=== PATIENT | male | born 1955 | race Caucasian/White ===

== ENCOUNTER 2018-01-26 16:27 | Inpatient (IN) | payer SELFPAY ==
[~2018-01-26 16:27] MED LIST: ISOVUE-370 76%-LOCM 1 ML ONE
[2018-01-26 16:43] LABS: Hemoglobin 13.3 g/dL (14.0-18.0); Mean Corpuscular HGB CONC 34.5 g/dL (32.0-36.0); Mean Corpuscular Hemoglobin 31.8 pg (27.0-31.0); Mean Corpuscular Volume 92.3 fL (78.0-98.0); Mean Platelet Volume 7.8 fL (7.4-10.4); Platelet Count 248 thou/uL (130-400); RBC Distribution Width 12.1 % (11.5-14.5); Red Blood Cell (RBC) Count 4.18 mill/uL (4.70-6.10); White Blood Cell (WBC) Count 34.8 thou/uL (4.8-10.8)
[2018-01-26 16:49] LABS: Prothrombin Time 16.4 SEC (12.0-14.7)
[2018-01-26 16:50] LABS: INR-International Normal Ratio 1.3
[2018-01-26 16:58] LABS: Band 17 % (5-11); Lymphocytes 3 % (21-51); MDiff Complete? YES; Monocytes 5 % (0-10); Neutrophil 73 % (42-75); PLT Morphology Comment Appears Adequate; RBC Morphology Normal; Reactive Lymphocytes 2 % (0-10)
[2018-01-26 17:00] LABS: CKMB 1.2 ng/mL (0-6.6); Troponin I Less than 0.010 ng/mL (< 0.028)
[2018-01-26 17:02] LABS: ALT (SGPT) 19 U/L (8-55); AST (SGOT) 15 U/L (5-34); Albumin 4.3 g/dL (3.4-4.8); Alkaline Phosphatase 64 U/L (40-150); Anion Gap 17 mmol/L (10-20); BUN (Urea Nitrogen) 22 mg/dL (8.4-25.7); Bilirubin, Total 1.4 mg/dL (0.2-1.2); Calc. Creatinine Clearance 0 mL/min (70-130); Carbon Dioxide 20 mmol/L (23-31); Chloride 99 mmol/L (98-107); Estimated GFR-MDRD 78; Globulin 3.3 g/dL (2.4-3.5); Glucose 148 mg/dL (80-115); Protein, Total 7.6 g/dL (5.8-8.1); Sodium 132 mmol/L (136-145)
--- NOTE | 2018-01-26 17:08 | CT ---
NONCONTRAST CT HEAD: 01/26/2018 HISTORY: Stroke alert. Slurred speech. Left arm weakness. FINDINGS: There is decreased attenuation in the periventricular white matter, likely attributable to severe chr onic small vessel ischemic changes. There is an area of encephalomalacia within the right parietal l obe, likely attributable to a remote area of infarction. There is also a small low density area in t he left occipital region, which likely represents an area of infarction of indeterminate age. A more recent infarction in this region cannot be entirely excluded. There are a few punctate low density areas within the left thalamus and left basal ganglia, which are nonspecific, but likely attributable to tiny lacunar infarctions of indeterminate age. There is no evidence of an intraparenchymal or extraaxial hemorrhage. There is cerebral and cerebellar volume loss. The ventricular system is normal in size, shape, and p osition for the degree of sulcal atrophy. There is a small low density area in the right cerebellar hemisphere, likely related to a remote infarction. Minimal mucosal thickening is seen in each maxillary antrum and in a few ethmoidal air cells. The ma stoid air cells are clear. The calvarial structures appear intact. IMPRESSION: 1. Small infarction in the left occipital lobe, of indeterminate age but probably subacute to chroni c. 2. Severe chronic small vessel ischemic changes with an area of encephalomalacia in the right pariet al lobe, probably related to a remote area of infarction. 3. Remote infarction, right cerebellar hemisphere. 4. Lacunar infarctions, left basal ganglia, of indeterminate age. 5. Cerebral and cerebellar volume loss. The above findings were discussed with Dr. Cortes in the emergency department on 01/26/2018 at 1645 hours. CODE CR POS: [facility]
[2018-01-26 19:07] LABS: Bilirubin Negative (Negative); Blood, Urine Negative (Negative); Clarity CLEAR (Clear); Glucose, Urine (Dipstick) Negative (Negative); Leukocyte Negative (Negative); Nitrite Negative (Negative); Protein, Urine (Dipstick) Negative (Neg-Trace); Urobilinogen 0.2 mg/dL (0.2-1.0); pH, Urine 7.5 (5.0-9.0)
--- NOTE | 2018-01-26 19:15 | CT ---
CT ANGIOGRAM BRAIN WITH IV CONTRAST AND 3D RECONSTRUCTIONS: CT ANGIOGRAM NECK WITH IV CONTRAST AND 3D RECONSTRUCTIONS: 01/26/2018 HISTORY: Stroke alert. The patient had slurred speech and left arm weakness. Unknown time when patient was l ast seen normal. FINDINGS: BRAIN: The bilateral middle cerebral and anterior cerebral arteries are patent. There are typ e origins of the bilateral posterior cerebral arteries, which appear patent. There is slight irregul arity involving the proximal left posterior cerebral artery, with findings likely related to a tiny a neurysm involving the proximal left posterior cerebral artery, measuring approximately 2 mm. The distal bilateral vertebral arteries, as well as basilar artery and superior cerebellar arteries, appear patent. No focal stenosis or branch occlusion is appreciated. No additional aneurysm is seen within the limitations of the technique of this examination. As noted on the noncontrast CT scan of the head, there is an infarction in the left occipital lobe, t he exact age of which is indeterminate but is probably more subacute to chronic in origin. NECK: There are prominent atherosclerotic vascular calcifications involving the aortic arch and at t he origins of the great vessels. There is atherosclerotic plaque seen involving the proximal left carvalho bclavian artery, with mild narrowing near the origin, with a moderate focal area of narrowing involvi ng the proximal left subclavian artery, just proximal to the take-off of the left vertebral artery. The remainder of the left subclavian, as well as the visualized left axillary artery, are patent. There is moderate (at least 50%) narrowing involving the origin of the proximal left subclavian arter y, as well as moderate (approximately 50%) narrowing involving the origin of the right common carotid artery. Atherosclerotic calcifications are seen throughout the common carotid arteries bilaterally, with dens e atherosclerotic vascular calcifications, as well as irregular calcifications, involving the origins and proximal internal carotid arteries bilaterally. There is a critical stenosis involving the prox imal right internal carotid artery, with the degree of narrowing greater than 70%, according to NASCE T criteria. There is a long segment of atherosclerotic irregularity involving the origin and proxima l left internal carotid artery, with the length of the area of irregularity measuring 2.2 cm, with se star, 70% or greater stenosis, involving the proximal left internal carotid artery throughout this co urse, including a focal area of critical stenosis without definitive enhancement visualized. The int ernal carotid arteries proximal to the areas of severe atherosclerotic irregularity are otherwise pat ent, including patent internal carotid arteries at each skull base, although there are prominent vasc ular calcifications involving the carotid siphons. The origins of each vertebral artery are not well seen due to calcified plaque at the origin of the r ight vertebral artery and tortuous at the origin of the left vertebral artery, although the vertebral arteries are otherwise patent bilaterally and codominant. There is a heterogeneous and slightly enhancing mass seen at the floor of the mouth on the right and just below the level of the left mandible. This mass measures 4.5 cm craniocaudal x 6.3 cm AP x 3.8 cm transverse. There is slight irregularity involving the body of the mandible, just to the left of midline, likely related to osseous involvement. This is likely related to a neoplastic process. The re is involvement of the musculature involving the floor of the mouth, and well defined fat planes ar e unable to be delineated. The submandibular and bilateral parotid glands have a normal appearance. There is a large fat density mass seen within the soft tissues of the neck, at the level of the upper and mid cervical spine, which measure 5.8 cm x 4.2 cm in maximum axial dimensions. This has charact eristics most suggestive of a large lipoma. No enlarged lymph nodes are seen within the neck by CT size criteria. Multilevel degenerative changes are seen in the spine. The visualized upper lobes demonstrate increased interstitial and patchy parenchymal opacities, worri some for a bilateral infectious process. A typical infectious process or possibly aspiration pneumon itis is a possibility. There are prominent calcifications in the soft tissues of the neck, posteriorly, to the right of midl ine. IMPRESSION: 1. No focal stenosis or branch occlusion is seen involving the elem of Macario or vertebrobasilar s ystem. 2. type origins of the bilateral posterior cerebral arteries. There is suggestion of a tiny s accular aneurysm involving the proximal left posterior cerebral artery, which measures 2 mm. This is best seen on the coronal and sagittal imaging. No additional aneurysm is seen within the limitation s of the technique of this examination. 3. Left occipital lobe infarction, likely related to a subacute to chronic infarction. Severe chron ic small vessel ischemic changes are noted. 4. Severe (greater than 70% according to NASCET criteria) stenosis involving the proximal bilateral internal carotid arteries, with focal areas of critical stenosis involving the proximal internal morales tid arteries bilaterally. Prominent irregular atherosclerotic plaque involves the left internal morales tid artery. 5. Large mass, which appears to emanate from the floor of the mouth, adjacent to and extending infer ior to the left mandible, worrisome for a neoplastic process. There is adjacent irregularity of the mandible, suggesting osseous involvement. 6. Large lipoma in the soft tissues, posterior left neck. 7. Interstitial and parenchymal opacities in the bilateral upper lobes, likely related to bilateral pneumonia. Atypical pneumonia is a possibility. 8. Focal moderate stenosis involving the proximal left subclavian artery, just proximal to the take- off of the left vertebral artery. 9. Atherosclerotic irregularity and moderate narrowing involving the proximal right subclavian arter y, with a moderate area of narrowing also involving the most proximal right common carotid artery, wi th the degree of narrowing approaching 50%. The above findings were discussed with Dr. Cortes in the emergency department on 01/26/2018 at 1702 hours. CODE CR POS: [facility]
[2018-01-26 19:16] LABS: Specific Gravity, Urine 1.052 (1.002-1.036)
--- NOTE | 2018-01-26 20:06 | RAD ---
PORTABLE AP CHEST X-RAY: 01/26/2018 HISTORY: Leukocytosis. Altered mental status. COMPARISON: None available. FINDINGS: There are interstitial and patchy parenchymal opacities seen within the mid lung zones bilaterally wi th more confluent parenchymal opacities in the right mid lung zone. The cardiac silhouette and pulmo nary vasculature are within normal limits. No pleural effusion is seen. Vascular calcification is s een in the thoracic aorta. Calcified granuloma is seen at the left lung base. Degenerative changes are noted in the spine. IMPRESSION: Interstitial and parenchymal opacities within the mid lung zones bilaterally, greater on the right, w orrisome for bilateral pneumonia. Atypical pneumonia is a possibility. POS: [facility]
[2018-01-26] MEDS ORDERED: Aspirin 325 MG TAB ONE (20:25)
[2018-01-26 21:55] VITALS: BMI 21.4
[2018-01-27] MEDS ORDERED: HYDROcodone/Acetaminophen 5/325 mg Tablet PO PRN ×2 (01:19)
[2018-01-27] MEDS ORDERED: Ondansetron ODT 4 MG TAB PO PRN (01:19)
[2018-01-27] MEDS ORDERED: Ondansetron HCl/PF 4 MG/2 ML Vial IVP PRN (01:19)
[2018-01-27] MEDS ORDERED: Acetaminophen 650 MG Suppository PR PRN (01:19)
[2018-01-27] MEDS ORDERED: Atorvastatin Calcium 40 MG TAB PO SCH (01:30)
[2018-01-27 05:49] LABS: Anion Gap 12 mmol/L (10-20); BUN (Urea Nitrogen) 17 mg/dL (8.4-25.7); Calc. Creatinine Clearance 91 mL/min (70-130); Calcium 9.5 mg/dL (7.8-10.44); Carbon Dioxide 25 mmol/L (23-31); Cardiac Risk 4.2 (Less than 4.5); Chloride 100 mmol/L (98-107); Cholesterol 127 mg/dl (< 200 Desired); Estimated GFR-MDRD Greater than 90; Glucose 105 mg/dL (80-115); HDL Cholesterol 30 mg/dL (>60 Neg Risk); LDL Cholesterol, Calculated 75 mg/dL; Magnesium 1.6 mg/dL (1.6-2.6); Potassium 3.5 mmol/L (3.5-5.1); Sodium 133 mmol/L (136-145); Triglycerides 109 mg/dL (Less than 150)
[2018-01-27 05:57] LABS: #Eosinphils 0.1 thou/uL (0.0-0.7); #Lymphocytes 1.9 thou/uL (1.20-3.40); #Monocytes 1.2 thou/uL (0.11-0.59); #Neutrophils 19.5 thou/uL (1.40-6.50); %Basophils 0.2 % (0.0-1.0); %Eosinophils 0.5 % (0.0-10.0); %Lymphocytes 8.3 % (21.0-51.0); %Monocytes 5.2 % (0.0-10.0); %Neutrophils 85.8 % (42.0-75.0); Hemoglobin 12.4 g/dL (14.0-18.0); Mean Corpuscular HGB CONC 32.7 g/dL (32.0-36.0); Mean Corpuscular Hemoglobin 30.5 pg (27.0-31.0); Mean Corpuscular Volume 93.2 fL (78.0-98.0); Mean Platelet Volume 8.1 fL (7.4-10.4); Platelet Count 233 thou/uL (130-400); RBC Distribution Width 12.2 % (11.5-14.5); Red Blood Cell (RBC) Count 4.06 mill/uL (4.70-6.10); White Blood Cell (WBC) Count 23.4 thou/uL (4.8-10.8)
[2018-01-27] MEDS: Famotidine 20 MG TAB PO SCH ×2 (08:15→21:37)
[2018-01-27] MEDS: Aspirin 325 MG TAB PO SCH (08:15)
[2018-01-27] MEDS: Enoxaparin Sodium 40 MG/0.4 ML SYRINGE SC SCH (08:16)
--- NOTE | 2018-01-27 15:17 | CT ---
CT OF THE THORAX WITHOUT IV CONTRAST: INDICATION: Cough. Concern for pneumonia. FINDINGS: There are interstitial and airspace opacities involving both upper lobes as well as portions of the l ingula and right middle lobe suspicious for multifocal pneumonia. This is superimposed on mild to mo derate COPD change. There are prominent vascular calcifications involving the thoracic aorta and cor onary arteries. No pathologically enlarged lymph nodes are evident. There are calcified lymph nodes within the left hilar region and mediastinum. There are calcified granuloma within the spleen. The adrenal glands are unremarkable. There is a layered density within the gallbladder suspicious for e ither small stones or sludge. There is a tiny hypodensity within the left mid kidney likely reflecti ng a small cyst. There is a 1.3 cm adenoma within the left adrenal gland. There is a 1.5 cm adenoma within the right adrenal gland. There is scattered degenerative and osteoarthritic change. No definite acute osseous abnormality is evident. IMPRESSION: 1. Findings of multifocal pneumonia. Recommend radiographic followup to resolution. 2. Mild to moderate chronic obstructive pulmonary disease change. 3. Findings of prior granulomatous disease. 4. Bilateral adrenal adenomas. 5. Layered density within the gallbladder may reflect small stones or layered sludge. 6. Small left renal hypodensity statistically likely reflective of a small cyst. 7. Coronary artery thoracic aorta calcifications. CODE T POS: [facility]
--- NOTE | 2018-01-27 19:59 | CON ---
DATE OF CONSULTATION: 01/27/2018 SUBJECTIVE: Referral request for ENT to assess suspicious left submandibular mass. Patient states t hat he has been aware of it for the last several months and did not notice it until he had a fall and has grown in size over these last several months. He does not complain of there being any pain with it nor does it impede with any kind of swallowing history as a previous smoker, though currently vazquez s not smoke. CT scan was performed previously and showed the mass to be suspicious in nature. There fore, ENT was called in. OBJECTIVE: The patient is well developed. He is well-nourished. He is in no acute distress. His v ital signs have been stable. Left submandibular region does show quite a large mass approximately 4 inches x 4 inches, it is fixed and it is hard and it is nonpainful. The patient is able to swallow w ithout difficulty. Floor of mouth and under tongue is normal in appearance. There does not appear t o be any kind of mass in this region. A flexible scope was performed after patient was sprayed with a combination spray. The entire nasoph aryngeal region was visualized and all was normal in appearance. In addition, both a fine needle asp iration procedure and a core biopsy procedure were done on the mass as well as a culture. The area i n that left submandibular region was cleaned using a Betadine solution thoroughly after which it was anesthetized using 1% lidocaine with epinephrine, approximately 5 mL was used. After being anestheti zed, there was fine needle aspiration was performed using an 18 gauge needle, several regions of the mass was explored and placed in a FNA solution. Immediately following the FNA procedure, a 15 blade was used to dissect a small 1 inch opening into the mass itself immediately after this. Culture swab was obtained and placed in the appropriate container. After this, using a Blakesley forceps, 2 core tissue samples were removed from the incision site and placed in and biopsy container all are to be sent to lab to be assessed. The wound was then closed using #2 surgical jessika. The patient tolera scot the procedure well. ASSESSMENT: Left submandibular mass suspicious for cancer. PLAN: Asked for a stat read on both FNA and core biopsy to determine if this is of a cancerous natur e and if so, surgical intervention will then be needed. ENT to follow up after biopsy results.
--- NOTE | 2018-01-27 21:15 | CON ---
DATE OF CONSULTATION: 01/27/2018 REASON FOR CONSULTATION: Evaluate patient with left arm and leg weakness and bilateral carotid disea se on CT angiogram. HISTORY OF PRESENT ILLNESS: Mr. Szymanski is a 62-year-old disheveled gentleman who was admitted wit h left arm and leg weakness. He has no previous history that he was able to give. He also had some slurred speech at the time of presentation. CT angiogram was performed including brain and neck. Th ere were multiple old-appearing both lacunar and nonlacunar infarcts. The CT angiogram shows bilater al carotid stenosis. The skin also noted a submandibular mass which is invading his mandible on the left. PAST MEDICAL HISTORY: None. PAST SURGICAL HISTORY: None. CURRENT MEDICATIONS: Advil p.r.n. ALLERGIES: None. SOCIAL HISTORY: The patient does smoke cigarettes. PHYSICAL EXAMINATION: VITAL SIGNS: His height is 6 feet, weight 158 pounds. Temperature is 98.0, pulse is 98 and regular, blood pressure 127/66. HEENT: He has a large fixed submandibular mass. ENT has recently biopsied this today and biopsy res ults are pending. This is obviously invasive into his mandible as it is fixed to the mandible. I ca nnot palpate any large neck nodes. He has bilateral carotid bruits. CHEST: Has diminished distant breath sounds bilaterally. HEART: Rhythm is regular. ABDOMEN: Soft and nontender. EXTREMITIES: There is no edema. 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 Biopsies are pending. Currently, he is on aspirin, Lovenox, and a statin. I would recommend continuing this until we can discuss his further treatment regimen with Dr. Jaimes. I am not sure wh at direction this is going to go ahead on their end. If deemed appropriate, we certainly can plan on carotid endarterectomies, right and then left since his right side was symptomatic.
[2018-01-27] MEDS: Atorvastatin Calcium 20 MG TAB PO SCH (21:37)
[2018-01-27] MEDS: LUMIGAN EA EYE SCH (21:38)
--- NOTE | 2018-01-28 00:10 | PRG ---
DATE OF SERVICE: 01/27/2018 SUBJECTIVE: The patient reports he is feeling somewhat better. He is regaining some movement on his left side. He states it is substantially better than it was when he initially presented. The patient reports that the mass under his left jaw occurred after he fell and he thought it was simply a result of some injury. He reports he is completely unaware of having had the mass on the left posterior neck area. Of note, the patient reports he used to be a heavy drinker, but quit about 4-6 months ago and drinks none now. He continues to smoke. OBJECTIVE: VITAL SIGNS: Temperature 98.3, pulse 100, respirations 16, O2 sat 92% on room air, blood pressure is 104/64. GENERAL APPEARANCE: Age appropriate male in no distress. He is pleasant, cooperative. HEENT: Patient is edentulous. There is somewhat appears to be almost calcification at the orifice of the sublingual salivary gland on the left. There is a 5-6 cm mass under the left mandibular area that is firm and nontender. There are several white eruptions at the surface, it looked almost pustular, but are solid. NECK: Otherwise supple and symmetric. He does have a large posterior fairly smooth enlargement in the posterior left neck area, it is nontender. The patient tends to head to the right. HEART: Regular, without significant murmurs. LUNGS: Significantly diminished throughout all lung braun without significant rales noted. There is some mild expiratory wheeze. ABDOMEN: Soft, nontender. EXTREMITIES: Warm and dry. NEUROLOGIC: The patient has a pretty good function now with a good strength on the left side near symmetric to the right. LABORATORY DATA: White count 23.4, hemoglobin 12.4, platelets 233. Sodium 132 , potassium 3.5, chloride 100, CO2 of 25, BUN 17, creatinine 0.83, glucose 105, calcium 95, magnesium 1.6. Cultures thus far are negative. IMPRESSION AND PLAN: 1. The patient presented with some left-sided weakness concerning for possible stroke symptoms. That seems to be improving. The patient likely needs to be on some anticoagulation, but he likely needs a biopsy, so we are going to hold on that for the moment. Neurology has been consulted. 2. Bilateral carotid stenosis. The patient has multiple arterial vessels occluded based on the CT angiogram of his head and neck. These go down to the subclavian. All of this related to his major of smoking habit. It is unclear how aggressive we should be with these. We will consult [facility] for input. 3. Pneumonia. Patient appears to have some bilateral pneumonia. It is unclear if this is chronic and scarring, but the patient does have severe leukocytosis. He is currently covered with Levaquin. May need to broaden that out, but we will simply observe that for now. 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 4. Left submandibular mass. This needs to be biopsied. On the CAT scan, it looks very concerning for neoplasm. Given his history of smoking and drinking, he is certainly at high risk for a neoplastic process there. We will consult ENT for that. 5. Large left posterior neck lipoma. Suspect this is benign. 6. Mild anemia. 7. History of significant degenerative brain disease, likely related to ischemic damage over time. The patient has multiple new diagnoses including multiple new vascular issues, pneumonia, possible stroke and left submandibular mass. We will ask palliative care to see the patient as well. NADINE
[2018-01-28] MEDS: Aspirin 325 MG TAB PO SCH (08:45)
[2018-01-28] MEDS: Famotidine 20 MG TAB PO SCH ×2 (08:45→20:28)
--- NOTE | 2018-01-28 10:14 | PDOC.PN ---
- Subjective Encounter Start Date: 01/28/18 Encounter Start Time: 10:12 Feels well. No complaints. - Objective Resuscitation Status: Resuscitation Status FULL:Full Resuscitation Vital Signs & Weight: Vital Signs (12 hours) Temp Pulse Resp BP Pulse Ox 01/28/18 08:00 98.4 F 91 18 01/28/18 04:00 98.4 F 91 18 104/68 96 01/28/18 00:00 99.1 F 98 18 111/80 100 Weight Weight 158 lb 3.2 oz I&O: 01/27/18 01/28/18 01/29/18 06:59 06:59 06:59 Intake Total 630 630 240 Output Total 325 200 Balance 305 430 240 Result Diagrams: 01/27/18 05:01 01/27/18 05:01 Phys Exam - Physical Examination Constitutional: NAD Left submand mass with bandage. Neck: no nodes Respiratory: no wheezing, no rales, no rhonchi Very diminished. Cardiovascular: RRR, no significant murmur II/ murmur best at pulmonic position Gastrointestinal: soft, non-tender, no distention, positive bowel sounds Musculoskeletal: no edema Dx/Plan (1) Mass of submandibular region Code(s): R22.0 - LOCALIZED SWELLING, MASS AND LUMP, HEAD Status: Acute Comment: Likely neoplastic. Path pending. Discussed with patient. He lives in [place], but has been here for months with his sister and mother. He would like to stay locally for la. (2) Pneumonia Code(s): J18.9 - PNEUMONIA, UNSPECIFIED ORGANISM Status: Acute Comment: Continue Levaquin. Generally asymptomatic. Has signif leukocytosis. Worrisome for metastatic disease, but CT does not specifically reveal that. (3) TIA (transient ischemic attack) Code(s): G45.9 - TRANSIENT CEREBRAL ISCHEMIC ATTACK, UNSPECIFIED Status: Acute Comment: Symptoms resolved. Continue with anticoagulation. (4) Carotid stenosis Code(s): I65.29 - OCCLUSION AND STENOSIS OF UNSPECIFIED CAROTID ARTERY Status : Acute Comment: Appreciate [facility] input. Needs bilateral carotid endarterectomies. Have to discern how that will fit into the overall treatment plan in a patient with multiple active medical problems. (5) Tobacco abuse Code(s): Z72.0 - TOBACCO USE Status: Acute Comment: Nicotine patch. (6) Murmur Code(s): R01.1 - CARDIAC MURMUR, UNSPECIFIED Status: Acute Comment: echo - Plan * Treat the pneumonia. Await biopsy results. Then we decide on what to tackle first. Will consult CM for financial assistance. He has applied for Medicaid and will be eligible for Medicare in March, but is non-resourced now. From [place], but here with family over the summer. Believes he would want to stay in this area for treatment.
[2018-01-28 10:36] LABS: #Eosinphils 0.1 thou/uL (0.0-0.7); #Lymphocytes 1.7 thou/uL (1.20-3.40); #Neutrophils 14.5 thou/uL (1.40-6.50); %Basophils 0.1 % (0.0-1.0); %Eosinophils 0.4 % (0.0-10.0); %Lymphocytes 9.7 % (21.0-51.0); %Monocytes 5.8 % (0.0-10.0); Hemoglobin 13.4 g/dL (14.0-18.0); Mean Corpuscular HGB CONC 34.3 g/dL (32.0-36.0); Mean Corpuscular Volume 93.3 fL (78.0-98.0); Mean Platelet Volume 7.5 fL (7.4-10.4); Platelet Count 243 thou/uL (130-400); RBC Distribution Width 12.1 % (11.5-14.5); Red Blood Cell (RBC) Count 4.19 mill/uL (4.70-6.10); White Blood Cell (WBC) Count 17.2 thou/uL (4.8-10.8)
[2018-01-28 10:47] LABS: Anion Gap 15 mmol/L (10-20); BUN (Urea Nitrogen) 16 mg/dL (8.4-25.7); Calc. Creatinine Clearance 89 mL/min (70-130); Calcium 9.7 mg/dL (7.8-10.44); Carbon Dioxide 23 mmol/L (23-31); Chloride 99 mmol/L (98-107); Estimated GFR-MDRD Greater than 90; Glucose 109 mg/dL (80-115); Sodium 133 mmol/L (136-145)
--- NOTE | 2018-01-28 11:38 | CON ---
DATE OF CONSULTATION: 01/27/2018 REFERRING PROVIDER: José Maldonado M.D. REASON FOR CONSULTATION: Left-sided numbness and weakness. HISTORY OF PRESENT ILLNESS: Mr. Szymanski is a pleasant 62-year-old male, who has been consulted for evaluation of left-sided numbness and weakness. He reports that last night he started having numbness and tingling sensation in his left upper and lower extremities. He also noticed weakness in his left arm and left leg. He also noticed slurred speech. His symptoms were not improving this morning, and thus he decided to present to the [facility]. He was last seen normal by his family member the night before admission. He reports of improvement in his symptoms since being admitted to the hospital. He currently denies any headache, chest pain, palpitation, lightheadedness or dizziness. PAST MEDICAL HISTORY: Significant for hypertension, TIA. PAST SURGICAL HISTORY: None significant. SOCIAL HISTORY: He reports of smoking 2 packs of cigarettes on a daily basis. He also has a history of marijuana use in the past. He denies alcohol use. FAMILY HISTORY: Noncontributory. CURRENT MEDICATIONS: Please review MAR. ALLERGIES: No known drug allergies. REVIEW OF SYSTEMS: As mentioned above in HPI, otherwise negative. PHYSICAL EXAMINATION: VITAL SIGNS: Blood pressure of 104/65, pulse of 100, temperature of 98.3, respirations of 16, O2 sats of 92% on room air. GENERAL: Well-developed, well-nourished male, in no apparent distress. RESPIRATORY: Clear to auscultation bilaterally. CARDIOVASCULAR: Regular rate and rhythm. NEUROLOGIC: Mental status: The patient is awake, alert, oriented x3. Speech and language: Fluent speech. Cranial nerves: Pupils are 3 mm and reactive. Visual braun are intact. External muscles are intact. No nystagmus noted. Face is symmetric. Tongue and uvula are midline. Motor exam showed normal tone and bulk with a 5/5 strength in both upper and lower extremities. Sensory : Sensation is intact and symmetric. Deep tendon reflexes, 2+ reflexes in both upper and lower extremities. Babinski: Plantar responses flexion bilaterally. Coordination intact to [id number] and finger tapping bilaterally. LABORATORY DATA: Reviewed which included CBC, coag panel, CMP, lipid profile and urinalysis, which is significant for WBC of 22.4, hemoglobin 12.4, hematocrit 37.9. PT of 16.4, INR of 1.3, PTT of 32.0, sodium of 123, otherwise unremarkable. IMAGING STUDIES: CT head without contrast was reviewed, which showed no acute intracranial abnormality. There is a small low density area in left occipital lobe suggestive of subacute to chronic infarction. CT angiogram of the head and neck were reviewed, which showed severe stenosis involving the proximal bilateral internal carotid arteries with focal areas of critical stenosis involving the proximal internal carotid arteries bilaterally, prominent irregular atherosclerotic plaque involving the left internal carotid artery. There is also large mass which emanates from the floor of the mouth adjacent to and extending inferior to the left mandible. IMPRESSION: 1. Transient episode of left-sided numbness and weakness, suggestive of transient ischemic attack. 2. Bilateral carotid artery stenosis. 3. Mass in the mandibular area. ASSESSMENT AND PLAN: Mr. Szymanski is a pleasant 62-year-old male with history of hypertension presents with episode of worsening left-sided numbness and weakness with resolution of symptoms in less than 24 hours which would suggest transient ischemic attack. The CT angiogram does show severe stenosis involving bilateral internal carotid arteries for which I would recommend consulting cardiovascular surgery and starting patient on Aspirin 325 mg daily for secondary stroke prevention. The CT angiogram also showed mass in the neck for which ENT needs to be consulted for possible biopsy and further recommendations. I would recommend obtaining MRI brain without contrast, consult PT, OT, and speech therapy. Once the workup is completed, patient may be okay to be discharged to home. No further neurological workup needed from my standpoint. Thank you for the consultation. NADINE
[2018-01-28] MEDS: LUMIGAN EA EYE SCH (20:28)
[2018-01-28] MEDS: Atorvastatin Calcium 20 MG TAB PO SCH (20:28)
[2018-01-29 06:47] LABS: #Eosinphils 0.1 thou/uL (0.0-0.7); #Lymphocytes 1.6 thou/uL (1.20-3.40); #Monocytes 0.8 thou/uL (0.11-0.59); #Neutrophils 10.2 thou/uL (1.40-6.50); %Basophils 0.2 % (0.0-1.0); %Lymphocytes 12.4 % (21.0-51.0); %Monocytes 6.5 % (0.0-10.0); %Neutrophils 79.9 % (42.0-75.0); Hemoglobin 13.7 g/dL (14.0-18.0); Mean Corpuscular HGB CONC 34.2 g/dL (32.0-36.0); Mean Corpuscular Hemoglobin 31.8 pg (27.0-31.0); Mean Platelet Volume 8.6 fL (7.4-10.4); Platelet Count 234 thou/uL (130-400); RBC Distribution Width 12.1 % (11.5-14.5); Red Blood Cell (RBC) Count 4.32 mill/uL (4.70-6.10); White Blood Cell (WBC) Count 12.7 thou/uL (4.8-10.8)
[2018-01-29 07:08] LABS: Anion Gap 14 mmol/L (10-20); BUN (Urea Nitrogen) 15 mg/dL (8.4-25.7); Calc. Creatinine Clearance 94 mL/min (70-130); Calcium 9.6 mg/dL (7.8-10.44); Carbon Dioxide 23 mmol/L (23-31); Chloride 102 mmol/L (98-107); Estimated GFR-MDRD Greater than 90; Glucose 115 mg/dL (80-115); Potassium 4.1 mmol/L (3.5-5.1); Sodium 135 mmol/L (136-145)
--- NOTE | 2018-01-29 08:33 | MRI ---
MRI OF BRAIN PERFORMED WITHOUT CONTRAST ENHANCEMENT: HISTORY: Left arm weakness. COMPARISON: CT examination that was performed 01/26/18. There is fairly pronounced generalized ventricular and sulcal prominence. There is extensive T2 and FLAIR hyperintensity seen within the white matter. On the diffusion weighted sequence in the right p osterior frontoparietal region is a small focus of restricted diffusion compatible with a small acute area of infarct. No mass effect is seen. No extraaxial masses. The mastoid air cells and visualized sinuses appear clear. IMPRESSION: 1. Small focus of acute infarct over the right posterior frontoparietal convexity region. 2. Extensive atrophy and chronic white matter change. POS: HOA
[2018-01-29] MEDS: Aspirin 325 MG TAB PO SCH (08:46)
[2018-01-29] MEDS: Famotidine 20 MG TAB PO SCH ×2 (08:47→20:58)
[2018-01-29] MEDS: Nicotine 21 MG PATCH TD SCH (08:47)
--- NOTE | 2018-01-29 13:46 | EKG ---
Test Reason : Blood Pressure : / mmHG Vent. Rate : 110 BPM Atrial Rate : 110 BPM P-R Int : 138 ms QRS Dur : 086 ms QT Int : 360 ms P-R-T Axes : 062 044 071 degrees QTc Int : 487 ms Sinus tachycardia Otherwise normal ECG Confirmed by TERRI SMITH, KELTON ([id number]), scientific publications editor CRISPIN ASHER ([id number]) on 01/29/2018 1:45:37 PM Referred By: Confirmed By:KELTON MURRAY MD
--- NOTE | 2018-01-29 14:20 | PRG ---
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 All this was discussed wi th the patient. OBJECTIVE: VITAL SIGNS: Stable, afebrile. NECK: Large necrotic mass involving the skin and fixed to the mandible in the left anterior mandibul ar area approximately 8 x 10 cm. There is some subtle lymphadenopathy associated with level 2 of the left side, otherwise, no obvious lymphadenopathy. HEENT: Oral cavity and oropharyngeal exam is still normal. No mucosal lesions are noted. He edentu lous. Nasal cavity is clear anteriorly. Nasopharynx is clear by previous laryngoscopy. ASSESSMENT: This is either a tumor, unknown primary with a large submental cervical lymph node metas tasis or a primary submandibular gland or sublingual gland squamous cell carcinoma. Regardless invol ving the bone involvement that is noted clinically and radiographically, his only best option is thien g to be resection, partial mandibulectomy along with a free flap to cover this area. Will discuss wi th the social media developer options of possibly getting him an appointment at [facility] or another [facility] that is capable of performing this size of a resection and closure, which will require an osteocu taneous free flap. In the meantime, we will stay standby to consult.
--- NOTE | 2018-01-29 15:24 | PDOC.PN ---
- Subjective Encounter Start Date: 01/29/18 Encounter Start Time: 15:23 Feels fine. No complaints. - Objective Resuscitation Status: Resuscitation Status FULL:Full Resuscitation Vital Signs & Weight: Vital Signs (12 hours) Temp Pulse Resp BP Pulse Ox 01/29/18 11:42 99.3 F 102 H 16 136/69 98 01/29/18 08:00 98 F 85 16 01/29/18 07:50 98 F 85 16 116/79 95 01/29/18 04:00 99.5 F 88 18 131/74 99 Weight Weight 158 lb 3.2 oz I&O: 01/28/18 01/29/18 01/30/18 06:59 06:59 06:59 Intake Total 630 1470 890 Output Total 200 400 Balance 430 1070 890 Result Diagrams: 01/29/18 06:40 01/29/18 06:40 Phys Exam - Physical Examination Constitutional: NAD Submental lesion biopsy site healing well. Neck: no nodes, no JVD, supple Respiratory: no wheezing, no rales, no rhonchi, clear to auscultation bilateral Diminished Cardiovascular: RRR, no significant murmur Gastrointestinal: soft, non-tender, no distention, positive bowel sounds Musculoskeletal: no edema Dx/Plan (1) Mass of submandibular region Code(s): R22.0 - LOCALIZED SWELLING, MASS AND LUMP, HEAD Status: Acute Comment: Squamous cell. ENT D/W CM to help get the patient set up with MD [facility]. Onc consult pending, but case discussed. Will need Rad Onc consult as well. (2) Pneumonia Code(s): J18.9 - PNEUMONIA, UNSPECIFIED ORGANISM Status: Acute Comment: Continue Levaquin. Generally asymptomatic. Has signif leukocytosis. Worrisome for metastatic disease, but CT does not specifically reveal that. Could change to oral abx anytime. (3) CVA (cerebral vascular accident) Code(s): I63.9 - CEREBRAL INFARCTION, UNSPECIFIED Status: Acute Comment: MRI did confirm small, new CVA. Still has risk of bigger CVA with the carotid stenosis. (4) TIA (transient ischemic attack) Code(s): G45.9 - TRANSIENT CEREBRAL ISCHEMIC ATTACK, UNSPECIFIED Status: Ruled -out Comment: Symptoms resolved. Continue with anticoagulation. (5) Carotid stenosis Code(s): I65.29 - OCCLUSION AND STENOSIS OF UNSPECIFIED CAROTID ARTERY Status : Acute Comment: Appreciate [facility] input. Needs bilateral carotid endarterectomies. Have to discern how that will fit into the overall treatment plan in a patient with multiple active medical problems. (6) Tobacco abuse Code(s): Z72.0 - TOBACCO USE Status: Acute Comment: Nicotine patch. (7) Murmur Code(s): R01.1 - CARDIAC MURMUR, UNSPECIFIED Status: Acute Comment: Echo with no signficant valvular disease. EF normal. Diastolic dysfunction present. - Plan * .
--- NOTE | 2018-01-29 18:37 | CON ---
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 HISTORY OF PRESENT ILLNESS: Mr. Szymanski is a disheveled 62-year-old gentleman who was admitted for stroke-like symptoms. He had some slurred speech, left arm and leg weakness, so he presented to the emergency room. CT scan of the brain showed old infarcts. He had a CT angiogram of the brain and n teresa. There was significant bilateral carotid stenosis. There was a heterogenic mass at the floor of the mouth on the right just below the level of the left mandible, measured 4.5 x 6.3 x 3.8 cm. ENT was consulted and performed a biopsy, which returned a moderately differentiated squamous cell carcin juice. The patient states this mass has been present for over 6 weeks. He fell several months ago and felt that this was just a swelling from his fall. He denies any dysphagia, odynophagia or weight lo ss. He is a heavy smoker, smoking approximately 2 packs a day for greater than 50 years. We were as ked to see the patient regarding possible treatments of his squamous cell carcinoma. PAST MEDICAL HISTORY: None. PAST SURGICAL HISTORY: None. ALLERGIES: No known drug allergies. HOME MEDICATIONS: None. FAMILY HISTORY: Noncontributory. SOCIAL HISTORY: [place] pack year history of smoking. No illicit drug use. REVIEW OF SYSTEMS: Constitutional: No fever, chills, night sweats, recent weight loss or gain. Eye s: No blurred or double vision. ENT: No pain, hoarseness, sore throat, dysphagia. Cardiovascular: No chest pain, palpitations or syncope. Respiratory: No shortness of breath, dyspnea on exertion or orthopnea. Gastrointestinal: No nausea, vomiting, diarrhea, constipation or abdominal pain. Gen itourinary: No dysuria or hematuria. Musculoskeletal: Positive for joint pain. Skin: No rash or pruritus. Hematologic: No bruising, bleeding, clotting. Neurologic: Positive for left-sided weakn ess. No numbness, tingling or seizure activity. Psychiatric: No anxiety or depression. PHYSICAL EXAMINATION: VITAL SIGNS: Temperature 98.4, pulse is 93, respiratory rate 16, BP is 127/67. He is 98% on room ai r. GENERAL: Disheveled male, in no acute distress. HEENT: Normocephalic, atraumatic. Pupils equal and reactive to light. He has no teeth. He has a p rotruding hard nodular mass on his left mandible. NECK: Supple. CARDIOVASCULAR: Regular rate and rhythm. LUNGS: Clear. ABDOMEN: Soft, nontender. Bowel sounds are positive. EXTREMITIES: No clubbing, cyanosis or edema. SKIN: No rash. HEMATOLOGIC: No petechia or purpura. NEUROLOGICAL: Positive for left upper extremity and lower extremity weakness. PSYCHIATRIC: The patient is alert and oriented and appropriate. PERTINENT LABORATORY AND X-RAYS: Current WBC is 12.7, hemoglobin 13.7, hematocrit 40.2, platelet cou nt is 234,000, 80% neutrophils, 12% lymphocytes. PT 16.4, INR is 1.3, PTT is 42. Sodium is 135, pot assium 4.1, chloride 102, CO2 is 23, BUN is 15, creatinine 0.81, calcium is 9.6, total bilirubin is 1 .4, AST is 15, ALT is 19, alkaline phosphatase is 64. Serum total protein 7.6, albumin 4.3, globulin 3.3. Radiology per HPI. IMPRESSION: 1. 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 2. Recent cerebrovascular accident. 3. Bilateral carotid stenosis. 4. Pneumonia. 5. History of tobacco abuse. DISCUSSION: ENT has seen the patient and has recommended a resection due to bone involvement. I hav e asked Radiation Oncology to see the patient for their opinion. There is some talk of fixing his ca rotid arteries due to his stroke prior to treatment of his squamous cell carcinoma. I will leave joss t to Dr. Hoover. Thank you for the consult. We will follow him remotely.
--- NOTE | 2018-01-29 19:34 | CON ---
DATE OF CONSULTATION: 01/29/2018 REASON FOR CONSULTATION: Mr. 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 HISTORY OF PRESENT ILLNESS: Mr. Szymanski is admitted to the hospital because of stroke-like symptoms. Apparently, on Saturday, he had some left-sided weakness and numbness and could not walk and get in the house. He was therefore brought to the emergency room for evaluation. His symptoms have improved, but CT angiogram showed peripheral vascular disease, particularly with bilateral carotid stenosis. He also had a large left-sided submandibular area mass, which was contiguous with the floor of mouth on his CT scan. MRI subsequently confirmed a stroke. He does report that his leg is stronger, but he still has some left-sided arm weakness. He has ambulated some. Biopsy has been performed of the submandibular area lesion, which confirmed a moderately differentiated squamous cell carcinoma. ENT has seen the patient and recommended consideration of resection, although the resection could not be done here because of the extent of resection needed. Oncology was asked to see the patient and I have been asked to see the patient to discuss his options with radiation. Presently, he denies any difficulty with swallowing. He has no weight loss and denies any shortness of breath or cough. He reports that he is not having any pain in the mouth or neck region. He first noticed this about 6 weeks ago after a fall. He thought it might be related to the fall, but it has not resolved. He voices no other complaints. PAST MEDICAL HISTORY: 1. Hypertension. 2. History of CVA. 3. He denies other medical or surgical problems. MEDICATIONS: Aspirin, Lipitor, Lovenox, Pepcid, Levaquin, Lumigan eyedrops. ALLERGIES: No known medical allergies. SOCIAL HISTORY: He was smoking up to 2 packs per day. He has been trying to quit. He used marijuana in the past, but has not used marijuana for the past six months. He has also not had alcohol for the past six months. Prior to that , he drank a 12 pack per day. He is presently living with his mother and sister. FAMILY HISTORY: His mother is still living in her 80s and was treated by me with radiation therapy for lung cancer. His father at age 72. There is no other family history of malignancy. REVIEW OF SYSTEMS: A 12-system review of systems was otherwise negative. PHYSICAL EXAMINATION: VITAL SIGNS: Height 6 feet, weight 158 pounds, blood pressure is 127/67, pulse is 93, respirations are 16, temperature 98.4, O2 saturation 93%. GENERAL: He is alert and oriented and in no apparent distress. He appears older than his stated age. Karnofsky performance status is 60%-70%. EYES: Pupils are equal, round and reactive to light. On extraocular movements , having difficulty with both eyes moving to the left. ENT: Oral cavity and oropharynx are normal without lesion or erythema. I see no visible mucosal changes in the floor of mouth area. Palate elevates symmetrically. Gingiva is intact. The patient is edentulous. NECK: Without preauricular, submandibular, cervical, supraclavicular adenopathy on the right. In the left neck, in the anterior aspect of the submandibular region, he has at least an 8 cm palpable mass with some skin changes overlying that. I do not feel any preauricular or cervical or supraclavicular adenopathy. No thyromegaly. Larynx midline. LUNGS: Breathing nonlabored. Clear to auscultation and percussion. CARDIOVASCULAR: Heart has regular rate and rhythm with a 2/6 systolic murmur. No lower extremity edema. BACK: No tenderness on fist percussion of the spine. LYMPHATIC: No axillary or inguinal adenopathy. ABDOMEN: Soft, nontender, nondistended without mass or hepatosplenomegaly. Liver percussed to normal size. SKIN: Without rash or purpura. NEUROLOGIC: Cranial nerves II-XII are described above. Motor strength is 5/5 in the right upper and lower extremities in all muscle groups tested. 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 Motor strength is 5/5 in the left lower extremity. Reflexes are more brisk on the right than on the left. Gait was not tested. He does have some trouble sitting up in bed. LABORATORY DATA: Pathology showed a moderately differentiated squamous cell carcinoma. CBC revealed a white blood count of 12,700 with a hemoglobin of 13.7 , hematocrit of 40.2, platelet count of 234,000. Chemistry group showed fairly normal electrolytes. RADIOLOGIC: MRI of the brain earlier today confirmed a right-sided stroke. CT angiogram through the neck and chest showed peripheral vascular disease with bilateral carotid stenosis. He had an 8 x 10 cm submandibular region mass on the left side. There is no definite evidence of adenopathy in the neck. CT of the chest showed interstitial changes consistent with pneumonia. ASSESSMENT: Mr. 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 This is not from the submandibular gland as the submandibular gland was clearly visible on the CT scan and is uninvolved. The mass is contiguous with the floor of mouth, although on exam, the floor of mouth appears okay. There is some mandibular erosion. He also has had a recent stroke with some residual left-sided weakness. There was question of aspiration pneumonia, which is resolving. PLAN: He does need to recover from his stroke before treatment can be entertained for his malignancy. His bilateral carotid stenosis may need to be addressed. In regard to his malignancy, he has been seen by Dr. Jaimes in ENT who recommended consideration of surgical resection. Typically, for a T4 tumor , that would be the treatment of choice. However, the surgery would be quite extensive and would involve mandibular reconstruction as well as flap reconstruction. He would still need postoperative radiation therapy. Unfortunately, that surgery is not offered here in this town. He would need to go to a major center who can perform such a large operation. Complicating this is the fact that he has no insurance. Thus, he will not be able to go to [facility] or most places. It is going to be very difficult to find a place that can accept him for that. He is, however, close to getting Medicare. 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 This may allow us to expand our treatment options. If he is not a candidate for surgical resection, then consideration could be given to chemotherapy and radiation. This, however , would be expected to have a lower long-term control rate. Nevertheless, this may be our only option for treatment. I did briefly discuss with him the logistics of radiation as well as the benefits and risks of treatment. This is discussed only in generalities as more specifics would be given once a treatment plan has been formulated. We will await the decisions in regard to his carotid stenosis and his stroke recovery. Time was taken to answer all of his questions. We will continue to follow him with you and can see him again as an outpatient also. We will have social work get involved as well. Thank you for this interesting consultation. NADINE
[2018-01-29] MEDS: Atorvastatin Calcium 20 MG TAB PO SCH (20:58)
[2018-01-29] MEDS: LUMIGAN EA EYE SCH (21:06)
[2018-01-30 04:22] LABS: #Eosinphils 0.2 thou/uL (0.0-0.7); #Lymphocytes 1.6 thou/uL (1.20-3.40); #Neutrophils 12.1 thou/uL (1.40-6.50); %Basophils 0.2 % (0.0-1.0); %Eosinophils 1.4 % (0.0-10.0); %Lymphocytes 10.9 % (21.0-51.0); %Monocytes 6.6 % (0.0-10.0); %Neutrophils 80.8 % (42.0-75.0); Hemoglobin 13.6 g/dL (14.0-18.0); Mean Corpuscular HGB CONC 34.8 g/dL (32.0-36.0); Mean Corpuscular Hemoglobin 32.1 pg (27.0-31.0); Mean Corpuscular Volume 92.3 fL (78.0-98.0); Mean Platelet Volume 7.7 fL (7.4-10.4); Platelet Count 272 thou/uL (130-400); Red Blood Cell (RBC) Count 4.22 mill/uL (4.70-6.10); White Blood Cell (WBC) Count 14.9 thou/uL (4.8-10.8)
[2018-01-30 05:13] LABS: Anion Gap 14 mmol/L (10-20); BUN (Urea Nitrogen) 10 mg/dL (8.4-25.7); Calc. Creatinine Clearance 98 mL/min (70-130); Carbon Dioxide 24 mmol/L (23-31); Chloride 102 mmol/L (98-107); Estimated GFR-MDRD Greater than 90; Glucose 133 mg/dL (80-115); Potassium 3.4 mmol/L (3.5-5.1); Sodium 137 mmol/L (136-145)
[2018-01-30] MEDS: Acetaminophen 325 MG TAB PO PRN ×3 (06:26→22:01)
[2018-01-30] MEDS: Nicotine 21 MG PATCH TD SCH (09:48)
[2018-01-30] MEDS: Aspirin 325 MG TAB PO SCH (09:48)
[2018-01-30] MEDS: Enoxaparin Sodium 40 MG/0.4 ML SYRINGE SC SCH (09:48)
[2018-01-30] MEDS: Famotidine 20 MG TAB PO SCH ×2 (09:48→21:39)
--- NOTE | 2018-01-30 17:36 | PDOC.PN ---
- Subjective Encounter Start Date: 01/30/18 Encounter Start Time: 17:34 Mr. Garcia was seen today in follow-up of submental cancer, and acute CVA. He does not have any complaints today. He denies headache or dizziness. - Objective Resuscitation Status: Resuscitation Status FULL:Full Resuscitation MAR Reviewed: Yes Vital Signs & Weight: Vital Signs (12 hours) Temp Pulse Resp BP BP Pulse Ox 01/30/18 15:40 98.4 F 92 16 136/74 99 01/30/18 11:38 98.4 F 93 16 136/76 98 01/30/18 09:40 98.3 F 86 16 97 01/30/18 09:10 143/94 H 01/30/18 07:47 98.3 F 86 16 125/72 97 Weight Weight 158 lb 3.2 oz I&O: 01/29/18 01/30/18 01/31/18 06:59 06:59 06:59 Intake Total 1470 2070 260 Output Total 400 150 Balance 1070 1920 260 Result Diagrams: 01/30/18 03:48 01/30/18 03:48 Phys Exam - Physical Examination HEENT: PERRLA Respiratory: no wheezing, no rales, no rhonchi, clear to auscultation bilateral Cardiovascular: RRR, no significant murmur, no rub Gastrointestinal: soft, non-tender, no distention, positive bowel sounds Musculoskeletal: no edema Dx/Plan (1) CVA (cerebral vascular accident) Code(s): I63.9 - CEREBRAL INFARCTION, UNSPECIFIED Status: Acute Comment: MRI did confirm small, new CVA. Still has risk of bigger CVA with the carotid stenosis. (2) Carotid stenosis Code(s): I65.29 - OCCLUSION AND STENOSIS OF UNSPECIFIED CAROTID ARTERY Status : Acute Comment: Appreciate [facility] input. Needs bilateral carotid endarterectomies. Have to discern how that will fit into the overall treatment plan in a patient with multiple active medical problems. (3) Mass of submandibular region Code(s): R22.0 - LOCALIZED SWELLING, MASS AND LUMP, HEAD Status: Acute Comment: Squamous cell. ENT D/W CM to help get the patient set up with MD [facility]. Onc consult pending, but case discussed. Will need Rad Onc consult as well. (4) Pneumonia Code(s): J18.9 - PNEUMONIA, UNSPECIFIED ORGANISM Status: Acute Comment: Continue Levaquin. Generally asymptomatic. Has signif leukocytosis. Worrisome for metastatic disease, but CT does not specifically reveal that. Could change to oral abx anytime. (5) Tobacco abuse Code(s): Z72.0 - TOBACCO USE Status: Chronic Comment: Nicotine patch. - Plan * Chart reviewed, and patient seen. He was admitted for an Acute CVA, and was found to have a submental tumor, which has been determined to be a squamous cell cancer. He also has bilateral carotid artery stenosis. He has been evaluated by ENT, CV- Surgery and radiation Oncology. His uninsured status proves to be an obstacle in forming a treatment plan * Will discuss with CV- Surgery whether to proceed with Carotid endarterectomy * Pneumonia- continue Levaquin * CVA- continue aspirin and statin therapy, and tobacco cessation .
[2018-01-30] MEDS: LUMIGAN EA EYE SCH (21:40)
[2018-01-30] MEDS: Atorvastatin Calcium 20 MG TAB PO SCH (21:40)
[2018-01-31] MEDS: Famotidine 20 MG TAB PO SCH ×2 (09:24→20:29)
[2018-01-31] MEDS: Aspirin 325 MG TAB PO SCH (09:24)
[2018-01-31] MEDS: Enoxaparin Sodium 40 MG/0.4 ML SYRINGE SC SCH (09:24)
[2018-01-31] MEDS: Nicotine 21 MG PATCH TD SCH (09:25)
[2018-01-31] MEDS ORDERED: hydrALAZINE 20 MG/ML VIAL SLOW IVP PRN (09:49)
--- NOTE | 2018-01-31 09:51 | PDOC.PN ---
- Subjective Encounter Start Date: 01/31/18 Encounter Start Time: 09:50 Mr. Garcia was seen today in follow-up of Submental cancer, and CVA. He does not have any complaints this morning. He denies any dizziness or feeling lightheaded. - Objective Resuscitation Status: Resuscitation Status FULL:Full Resuscitation MAR Reviewed: Yes Vital Signs & Weight: Vital Signs (12 hours) Temp Pulse Resp BP Pulse Ox 01/31/18 08:00 99.7 F H 101 H 20 137/81 95 01/31/18 07:10 98.9 F 97 20 01/31/18 03:20 98.9 F 97 20 116/65 92 L 01/31/18 00:00 98.8 F 94 14 121/75 96 Weight Weight 158 lb 3.2 oz I&O: 01/30/18 01/31/18 02/01/18 06:59 06:59 06:59 Intake Total 2070 880 Output Total 150 200 Balance 1920 680 Result Diagrams: 01/30/18 03:48 01/30/18 03:48 Phys Exam - Physical Examination HEENT: PERRLA Respiratory: no wheezing, no rales, no rhonchi, clear to auscultation bilateral Cardiovascular: RRR, no significant murmur, no rub Gastrointestinal: soft, non-tender, no distention, positive bowel sounds Musculoskeletal: no edema Neurological: non-focal, moves all 4 limbs Dx/Plan (1) CVA (cerebral vascular accident) Code(s): I63.9 - CEREBRAL INFARCTION, UNSPECIFIED Status: Acute Comment: MRI did confirm small, new CVA. Still has risk of bigger CVA with the carotid stenosis. (2) Carotid stenosis Code(s): I65.29 - OCCLUSION AND STENOSIS OF UNSPECIFIED CAROTID ARTERY Status : Acute Comment: Appreciate [facility] input. Needs bilateral carotid endarterectomies. Have to discern how that will fit into the overall treatment plan in a patient with multiple active medical problems. (3) Mass of submandibular region Code(s): R22.0 - LOCALIZED SWELLING, MASS AND LUMP, HEAD Status: Acute Comment: Squamous cell. ENT D/W CM to help get the patient set up with MD Andersen. Onc consult pending, but case discussed. Will need Rad Onc consult as well. (4) Pneumonia Code(s): J18.9 - PNEUMONIA, UNSPECIFIED ORGANISM Status: Acute Comment: Continue Levaquin. Generally asymptomatic. Has signif leukocytosis. Worrisome for metastatic disease, but CT does not specifically reveal that. Could change to oral abx anytime. (5) Tobacco abuse Code(s): Z72.0 - TOBACCO USE Status: Chronic Comment: Nicotine patch. - Plan * Acute CVA- continue aspirin and statin. 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 He will need treatment at a large referral Center * Pneumonia- continue Levaquin * Tobacco Abuse- encourage discontinuation of smoking * HTN- blood pressure is labile- but will allow some permissive hypertension, and will not use PRN medication unless the SBP is more than 180. .
[2018-01-31] MEDS: Acetaminophen 325 MG TAB PO PRN (13:30)
[2018-01-31] MEDS: LUMIGAN EA EYE SCH (20:29)
[2018-01-31] MEDS: Atorvastatin Calcium 20 MG TAB PO SCH (20:31)
[2018-02-01] MEDS: Nicotine 21 MG PATCH TD SCH (07:52)
[2018-02-01] MEDS: Acetaminophen 325 MG TAB PO PRN ×2 (07:52→20:31)
[2018-02-01] MEDS: Enoxaparin Sodium 40 MG/0.4 ML SYRINGE SC SCH (07:57)
[2018-02-01] MEDS: Aspirin 325 MG TAB PO SCH (07:57)
[2018-02-01] MEDS: Famotidine 20 MG TAB PO SCH ×2 (07:57→20:32)
--- NOTE | 2018-02-01 12:35 | PDOC.PN ---
- Subjective Encounter Start Date: 02/01/18 Encounter Start Time: 07:40 Pt seen for followup re: carotid stenosis. Feels better. Denies nausea, vomiting, diarrhea or abdo pain. L weakness improving. - Objective Resuscitation Status: Resuscitation Status FULL:Full Resuscitation MAR Reviewed: Yes Vital Signs & Weight: Vital Signs (12 hours) Temp Pulse Pulse Resp BP BP Pulse Ox 02/01/18 11:16 98.7 F 101 H 16 99/67 100 02/01/18 09:19 117 H 192/93 H 02/01/18 08:00 98.8 F 98 16 02/01/18 07:38 98.8 F 98 16 128/76 98 02/01/18 03:30 98.6 F 100 12 144/74 H 94 L Weight Weight 158 lb 3.2 oz I&O: 01/31/18 02/01/18 02/02/18 06:59 06:59 06:59 Intake Total 880 1260 240 Output Total 200 750 Balance 680 510 240 Result Diagrams: 01/30/18 03:48 01/30/18 03:48 EKG Reviewed by me: Yes (Tele: NSR) Phys Exam - Physical Examination Constitutional: NAD HEENT: moist MMs, sclera anicteric, oral pharynx no lesions, 2+ tonsils Neck: no nodes, no JVD, supple, full ROM Respiratory: no wheezing, no rales, no rhonchi, clear to auscultation bilateral Cardiovascular: RRR, no rub S1, S2 Gastrointestinal: soft, non-tender, no distention, positive bowel sounds Neurological: moves all 4 limbs Psychiatric: normal affect, A&O x 3 Dx/Plan (1) Carotid stenosis Code(s): I65.29 - OCCLUSION AND STENOSIS OF UNSPECIFIED CAROTID ARTERY Status : Acute Comment: For R CEA on Saturday. (2) CVA (cerebral vascular accident) Code(s): I63.9 - CEREBRAL INFARCTION, UNSPECIFIED Status: Acute Comment: continue aspirin and statin (3) Mass of submandibular region Code(s): R22.0 - LOCALIZED SWELLING, MASS AND LUMP, HEAD Status: Acute Comment: Likely for treatment in March (4) Pneumonia Code(s): J18.9 - PNEUMONIA, UNSPECIFIED ORGANISM Status: Acute Comment: Continue Levaquin. (5) Tobacco abuse Code(s): Z72.0 - TOBACCO USE Status: Chronic Comment: continuie nicotine patch. - Plan * . Review of Systems - Review of Systems Constitutional: negative: fever, chills, sweats, weakness, malaise Respiratory: negative: Cough, Shortness of Breath, SOB with Excertion, Pleuritic Pain, Wheezing Cardiovascular: negative: chest pain, palpitations, orthopnea, paroxysmal nocturnal dyspnea, edema, light headedness Gastrointestinal: negative: Nausea, Vomiting, Abdominal Pain, Diarrhea, Constipation, Melena, Hematochezia Genitourinary: negative: Dysuria, Frequency, Incontinence, Hematuria, Retention Skin: negative: Rash, Lesions, Isaiah, Bruising - Medications/Allergies Allergies/Adverse Reactions: Allergies Allergy/AdvReac Type Severity Reaction Status Date / Time No Known Allergies Allergy Verified 01/26/18 23:40 Medications: Current Medications Acetaminophen (Tylenol) 650 mg PO Q4H PRN PRN Reason: Headache/Fever or Pain Last Admin: 02/01/18 07:52 Dose: 650 mg Acetaminophen (Tylenol) 650 mg [place] Q4H PRN PRN Reason: Headache/Fever or Pain Hydrocodone Bitart/Acetaminophen ([place] 5/325) 1 tab PO Q4H PRN PRN Reason: Moderate Pain (4-6) Hydrocodone Bitart/Acetaminophen ([place] 5/325) 2 tab PO Q4H PRN PRN Reason: Severe Pain (7-10) Aspirin (Aspirin) 325 mg PO DAILY [facility] Last Admin: 02/01/18 07:57 Dose: 325 mg Atorvastatin Calcium (Lipitor) 20 mg PO HS [facility] Last Admin: 01/31/18 20:31 Dose: 20 mg Cefazolin Sodium (Ancef) 2 gm SLOW IVP ONCALL-OR [facility] Stop: 02/03/18 23:59 Enoxaparin Sodium (Lovenox) 40 mg SC 0900 [facility] Stop: 02/02/18 22:00 Last Admin: 02/01/18 07:57 Dose: 40 mg Famotidine (Pepcid) 20 mg PO BID [facility] Last Admin: 02/01/18 07:57 Dose: 20 mg Hydralazine HCl (Apresoline) 10 mg SLOW IVP Q4H PRN PRN Reason: Systolic BP > 180 Levofloxacin (Levaquin) 750 mg PO 0600 [facility] Last Admin: 02/01/18 05:14 Dose: 750 mg Nicotine (Nicoderm Patch) 21 mg TD DAILY [facility] Last Admin: 02/01/18 07:52 Dose: 21 mg Ondansetron HCl (Zofran Odt) 4 mg PO Q6H PRN PRN Reason: Nausea/Vomiting Ondansetron HCl (Zofran) 4 mg IVP Q6H PRN PRN Reason: Nausea/Vomiting Lum[place] 1 Drop 0 each EA EYE HS [facility] Last Admin: 01/31/18 20:29 Dose: 1 each Sodium Chloride (Flush - Normal Saline) 10 ml IVF Q12HR [facility] Last Admin: 02/01/18 07:57 Dose: 10 ml Sodium Chloride (Flush - Normal Saline) 10 ml IVF PRN PRN PRN Reason: Saline Flush
[2018-02-01] MEDS: Atorvastatin Calcium 20 MG TAB PO SCH (20:32)
[2018-02-01] MEDS: LUMIGAN EA EYE SCH (20:33)
[2018-02-02] MEDS: Enoxaparin Sodium 40 MG/0.4 ML SYRINGE SC SCH (08:13)
[2018-02-02] MEDS: Aspirin 325 MG TAB PO SCH (08:13)
[2018-02-02] MEDS: Famotidine 20 MG TAB PO SCH ×2 (08:13→20:44)
[2018-02-02] MEDS: Nicotine 21 MG PATCH TD SCH (08:13)
[2018-02-02] MEDS: Acetaminophen 325 MG TAB PO PRN ×3 (08:13→23:35)
--- NOTE | 2018-02-02 12:39 | PDOC.PN ---
- Subjective Encounter Start Date: 02/02/18 Encounter Start Time: 07:40 Pt seen for followup re: carotid stenosis. Denies any complaints. - Objective Resuscitation Status: Resuscitation Status FULL:Full Resuscitation Vital Signs & Weight: Vital Signs (12 hours) Temp Pulse Resp BP Pulse Ox 02/02/18 11:20 98.3 F 90 16 152/80 H 97 02/02/18 08:00 98.3 F 98 16 02/02/18 07:25 98.3 F 98 16 142/71 H 98 02/02/18 04:00 98.1 F 91 16 151/82 H 96 Weight Weight 158 lb 3.2 oz I&O: 02/01/18 02/02/18 02/03/18 06:59 06:59 06:59 Intake Total 1260 1790 360 Output Total 750 375 Balance 510 1415 360 Result Diagrams: 01/30/18 03:48 01/30/18 03:48 Phys Exam - Physical Examination Constitutional: NAD HEENT: PERRLA, moist MMs, sclera anicteric, oral pharynx no lesions Neck: no nodes, no JVD, supple, full ROM Respiratory: no wheezing, no rales, no rhonchi, clear to auscultation bilateral Cardiovascular: RRR, no rub S1, S2 Gastrointestinal: soft, non-tender, no distention, positive bowel sounds Neurological: moves all 4 limbs Psychiatric: normal affect Dx/Plan (1) Carotid stenosis Code(s): I65.29 - OCCLUSION AND STENOSIS OF UNSPECIFIED CAROTID ARTERY Status : Acute Comment: pt to have right carotid endarterectomy tomorrow (2) CVA (cerebral vascular accident) Code(s): I63.9 - CEREBRAL INFARCTION, UNSPECIFIED Status: Acute Comment: on aspirin and statin (3) Mass of submandibular region Code(s): R22.0 - LOCALIZED SWELLING, MASS AND LUMP, HEAD Status: Acute Comment: Likely for treatment in March (4) Pneumonia Code(s): J18.9 - PNEUMONIA, UNSPECIFIED ORGANISM Status: Acute Comment: on Levaquin. (5) Tobacco abuse Code(s): Z72.0 - TOBACCO USE Status: Chronic Comment: on nicotine patch. - Plan * . Review of Systems - Review of Systems Constitutional: negative: fever, chills, sweats, weakness, malaise Respiratory: negative: Cough, Shortness of Breath, SOB with Excertion, Pleuritic Pain, Wheezing Cardiovascular: negative: chest pain, palpitations, orthopnea, paroxysmal nocturnal dyspnea, edema, light headedness Gastrointestinal: negative: Nausea, Vomiting, Abdominal Pain, Diarrhea, Constipation, Melena, Hematochezia Genitourinary: negative: Dysuria, Frequency, Incontinence, Hematuria, Retention - Medications/Allergies Allergies/Adverse Reactions: Allergies Allergy/AdvReac Type Severity Reaction Status Date / Time No Known Allergies Allergy Verified 01/26/18 23:40 Medications: Current Medications Acetaminophen (Tylenol) 650 mg PO Q4H PRN PRN Reason: Headache/Fever or Pain Last Admin: 02/02/18 08:13 Dose: 650 mg Acetaminophen (Tylenol) 650 mg [place] Q4H PRN PRN Reason: Headache/Fever or Pain Hydrocodone Bitart/Acetaminophen ([place] 5/325) 1 tab PO Q4H PRN PRN Reason: Moderate Pain (4-6) Hydrocodone Bitart/Acetaminophen ([place] 5/325) 2 tab PO Q4H PRN PRN Reason: Severe Pain (7-10) Aspirin (Aspirin) 325 mg PO DAILY [facility] Last Admin: 02/02/18 08:13 Dose: 325 mg Atorvastatin Calcium (Lipitor) 20 mg PO HS [facility] Last Admin: 02/01/18 20:32 Dose: 20 mg Cefazolin Sodium (Ancef) 2 gm SLOW IVP ONCALL-OR [facility] Stop: 02/03/18 23:59 Enoxaparin Sodium (Lovenox) 40 mg SC 0900 [facility] Stop: 02/02/18 22:00 Last Admin: 02/02/18 08:13 Dose: 40 mg Famotidine (Pepcid) 20 mg PO BID [facility] Last Admin: 02/02/18 08:13 Dose: 20 mg Hydralazine HCl (Apresoline) 10 mg SLOW IVP Q4H PRN PRN Reason: Systolic BP > 180 Levofloxacin (Levaquin) 750 mg PO 0600 [facility] Last Admin: 02/02/18 05:51 Dose: 750 mg Nicotine (Nicoderm Patch) 21 mg TD DAILY [facility] Last Admin: 02/02/18 08:13 Dose: 21 mg Ondansetron HCl (Zofran Odt) 4 mg PO Q6H PRN PRN Reason: Nausea/Vomiting Ondansetron HCl (Zofran) 4 mg IVP Q6H PRN PRN Reason: Nausea/Vomiting Lumigan 1 Drop 0 each EA EYE HS [facility] Last Admin: 02/01/18 20:33 Dose: 1 each Sodium Chloride (Flush - Normal Saline) 10 ml IVF Q12HR [facility] Last Admin: 02/02/18 08:16 Dose: 10 ml Sodium Chloride (Flush - Normal Saline) 10 ml IVF PRN PRN PRN Reason: Saline Flush
[2018-02-02] MEDS: Atorvastatin Calcium 20 MG TAB PO SCH (20:44)
[2018-02-02] MEDS: LUMIGAN EA EYE SCH (20:45)
[2018-02-03] MEDS ORDERED: CEFAZOLIN/Water 2 GM/20 ML SYRINGE SLOW IVP SCH (07:00)
[2018-02-03] MEDS ORDERED: Heparin 5,000 UNITS/ML VIAL ONE (07:21)
[2018-02-03] MEDS ORDERED: Protamine Sulfate 50 MG/5 ML VIAL ONE (07:21)
[2018-02-03] MEDS ORDERED: Midazolam HCl 2 mg/2 ml Vial ONE (07:49)
[2018-02-03] MEDS ORDERED: CEFAZOLIN/Water 2 GM/20 ML SYRINGE ONE (07:59)
[2018-02-03] MEDS: Famotidine 20 MG TAB PO SCH ×2 (08:00→20:30)
[2018-02-03] MEDS: Nicotine 21 MG PATCH TD SCH (08:00)
[2018-02-03] MEDS: Aspirin 325 MG TAB PO SCH (08:00)
[2018-02-03] MEDS ORDERED: Fentanyl 250 MCG/5 ML VIAL ONE (08:02)
--- NOTE | 2018-02-03 09:47 | OP ---
DATE OF PROCEDURE: 02/03/2018 PREOPERATIVE DIAGNOSIS: Symptomatic right carotid stenosis. POSTOPERATIVE DIAGNOSIS: Symptomatic right carotid stenosis. PROCEDURE: Right carotid endarterectomy with patch angioplasty. SURGEON: Henri Butler M.D. ANESTHESIA: General endotracheal - Dr. Alec Snider. ESTIMATED BLOOD LOSS: Less than 50. SPECIMEN: Right IJ chain lymph node. PROCEDURE IN DETAIL: After consent was obtained, the patient was brought to operating room and place d in supine position on the operating room table. Appropriate anesthetic monitor was placed and gene ral endotracheal anesthesia induced. The right neck was prepped and draped in usual sterile fashion. Skin incision was made on the anterior border of sternocleidomastoid. Sternocleidomastoid was mobi lized. Carotid sheath was entered. Common internal and external carotid arteries were carefully dis sected free from surrounding tissues. Vagus and hypoglossal nerves were noted and protected througho ut the procedure. The patient was systemically heparinized. After 3 minutes, internal, common, and external carotid arteries were serially clamped. Incision was made on the common carotid artery exte nded through the bulb onto the internal carotid artery distal to plaque. A 10-[place] shunt wa s placed and antegrade flow reestablished. Endarterectomy was begun on the common carotid artery ext ended through the bulb on the internal carotid artery. The endpoint had to be transected sharply. T he distal end point was tacked down with 7-0 Prolene suture. An eversion endarterectomy was performe d of the external carotid artery. Medial fibers were debrided. Artery was flushed with heparinized saline. Bovine pericardial patch was sewn in place with running 6-0 Prolene suture. Prior to comple tion of the patch suture line, the shunt was clamped and removed. Arteries were backbled and flushed with heparinized saline. Patch suture line was completed. Antegrade flow was reestablished up the external carotid artery for 10 seconds followed by the internal carotid artery. A 50 mg of protamine was given. Hemostasis was ensured. Wounds were irrigated, closed in layers and Dermabond applied t o the skin. The patient was awakened and neurologically unchanged at completion of procedure, the pa tiejatin was transferred to the recovery room in stable condition.
[2018-02-03] MEDS ORDERED: Phenylephrine 10 MG/NS 250 ML 250 ML IVPB PRN (09:59)
[2018-02-03] MEDS ORDERED: PROPOFOL 200 MG/20 ML VIAL ONE (10:14)
[2018-02-03] MEDS ORDERED: Vecuronium 10 MG VIAL ONE (10:14)
[2018-02-03] MEDS ORDERED: ePHEDrine/0.9% NaCl/PF SYRINGE 50 mg/10 ml ONE (10:14)
[2018-02-03] MEDS ORDERED: Lidocaine 1% PF 5 ML VIAL ONE (10:14)
[2018-02-03] MEDS ORDERED: Glycopyrrolate 0.2 MG/ML 5 ML SYRINGE ONE (10:14)
[2018-02-03] MEDS ORDERED: Heparin 10,000 UNITS/ 10 ML VIAL ONE (10:14)
[2018-02-03] MEDS ORDERED: PHENYLEPHRINE-NS 100 MCG/ML 10 ML SYRINGE ONE (10:14)
[2018-02-03] MEDS ORDERED: Ondansetron HCl/PF 4 MG/2 ML Vial ONE (10:14)
[2018-02-03] MEDS ORDERED: Succinylcholine Chloride 20 MG/ML 10 ml SYRINGE FS ONE (10:14)
[2018-02-03] MEDS ORDERED: Phenylephrine 10 MG/NS 250 ML 250 ML IVPB SCH (10:15)
[2018-02-03] MEDS ORDERED: HYDROcodone/Acetaminophen 5/325 mg Tablet PO PRN (11:10)
[2018-02-03] MEDS ORDERED: Nitroglycerin 50 MG/250 ML BOT 250 ML IVPB PRN (11:10)
[2018-02-03] MEDS ORDERED: Ondansetron HCl/PF 4 MG/2 ML Vial IVP PRN (11:10)
[2018-02-03] MEDS ORDERED: Promethazine HCl 25 MG/ML VIAL IM PRN (11:10)
[2018-02-03] MEDS ORDERED: Fentanyl 100 MCG/2 ML VIAL SLOW IVP PRN (11:10)
[2018-02-03] MEDS: Sodium Chloride 0.9% 1,000 ML IV SCH ×2 (12:09→20:51)
[2018-02-03] MEDS: Acetaminophen 325 MG TAB PO PRN ×2 (13:11→19:26)
[2018-02-03] MEDS: CEFAZOLIN/Water 2 GM/20 ML SYRINGE SLOW IVP SCH (15:39)
--- NOTE | 2018-02-03 17:47 | PDOC.PN ---
- Subjective Encounter Start Date: 02/03/18 Encounter Start Time: 17:45 Pt seen for followup re: carotid stenosis. Denies chest pain, shortness of breath, fevers or chills. - Objective Resuscitation Status: Resuscitation Status FULL:Full Resuscitation MAR Reviewed: Yes Vital Signs & Weight: Vital Signs (12 hours) Temp Pulse Resp Pulse Ox 02/03/18 15:00 98.1 F 02/03/18 13:11 69 12 99 02/03/18 11:45 97.7 F 78 16 99 02/03/18 11:00 97.7 F 02/03/18 07:10 98.8 F 98 18 99 Weight Weight 158 lb 3.2 oz Most Recent Monitor Data Heart Rate from ECG 74 NIBP 108/60 NIBP BP-Mean 80 Respiration from ECG 21 SpO2 100 I&O: 02/02/18 02/03/18 02/04/18 06:59 06:59 06:59 Intake Total 1790 1810 2060 Output Total 375 625 Balance 1415 1185 2060 Result Diagrams: 01/30/18 03:48 01/30/18 03:48 EKG Reviewed by me: Yes (Tele: NSR) Phys Exam - Physical Examination Constitutional: NAD HEENT: moist MMs, sclera anicteric, oral pharynx no lesions, 2+ tonsils Neck: no nodes, no JVD, supple, full ROM surgical site clean (s/p R CEA) Respiratory: no wheezing, no rales, no rhonchi, clear to auscultation bilateral Cardiovascular: RRR, no rub S1, S2 Gastrointestinal: soft, non-tender, no distention, positive bowel sounds Neurological: moves all 4 limbs Psychiatric: normal affect Dx/Plan (1) Carotid stenosis Code(s): I65.29 - OCCLUSION AND STENOSIS OF UNSPECIFIED CAROTID ARTERY Status : Acute Comment: s/p R carotid endarterectomy, uneventful (2) CVA (cerebral vascular accident) Code(s): I63.9 - CEREBRAL INFARCTION, UNSPECIFIED Status: Acute Comment: will continue aspirin and statin (3) Mass of submandibular region Code(s): R22.0 - LOCALIZED SWELLING, MASS AND LUMP, HEAD Status: Acute Comment: Likely for treatment in March (4) Pneumonia Code(s): J18.9 - PNEUMONIA, UNSPECIFIED ORGANISM Status: Acute Comment: will continue levofloxacin (5) Tobacco abuse Code(s): Z72.0 - TOBACCO USE Status: Chronic Comment: will continue nicotine patch. - Plan * . Review of Systems - Review of Systems Constitutional: negative: fever, chills, sweats, weakness, malaise Respiratory: negative: Cough, Shortness of Breath, SOB with Excertion, Pleuritic Pain, Wheezing Cardiovascular: negative: chest pain, palpitations, orthopnea, paroxysmal nocturnal dyspnea, edema, light headedness Gastrointestinal: negative: Nausea, Vomiting, Abdominal Pain, Diarrhea, Constipation, Melena, Hematochezia Genitourinary: negative: Dysuria, Frequency, Incontinence, Hematuria, Retention Skin: negative: Rash, Lesions, Isaiah, Bruising - Medications/Allergies Allergies/Adverse Reactions: Allergies Allergy/AdvReac Type Severity Reaction Status Date / Time No Known Allergies Allergy Verified 01/26/18 23:40 Medications: Current Medications Acetaminophen (Tylenol) 650 mg [place] Q4H PRN PRN Reason: Headache/Fever or Pain Acetaminophen (Tylenol) 650 mg PO Q4H PRN PRN Reason: Fever > 101 or headache Last Admin: 02/03/18 13:11 Dose: 650 mg Hydrocodone Bitart/Acetaminophen ([place] 5/325) 1 tab PO Q4H PRN PRN Reason: Mild Pain (1-3) Hydrocodone Bitart/Acetaminophen ([place] 5/325) 2 tab PO Q4H PRN PRN Reason: Moderate Pain (4-6) Albuterol/Ipratropium (Duoneb) 3 ml NEB [id number] PRN PRN Reason: SHORTNESS OF BREATH Albuterol/Ipratropium (Duoneb) 3 ml NEB [id number] [facility] Last Admin: 02/03/18 13:11 Dose: 3 ml Aspirin (Aspirin) 325 mg PO DAILY [facility] Last Admin: 02/03/18 08:00 Dose: Not Given Atorvastatin Calcium (Lipitor) 20 mg PO HS [facility] Last Admin: 02/02/18 20:44 Dose: 20 mg Cefazolin Sodium (Ancef) 2 gm SLOW IVP 0800,1600,2359 [facility] Stop: 02/04/18 08:01 Last Admin: 02/03/18 15:39 Dose: 2 gm Famotidine (Pepcid) 20 mg PO BID [facility] Last Admin: 02/03/18 08:00 Dose: Not Given Fentanyl (Sublimaze) 25 mcg SLOW IVP Q4H PRN PRN Reason: Moderate Pain (4-6) Hydralazine HCl (Apresoline) 10 mg SLOW IVP Q4H PRN PRN Reason: Systolic BP > 180 Phenylephrine HCl (Pb-Synephrine) 250 mls @ 0 mls/hr IVPB INF [facility]; Protocol Phenylephrine HCl 10 mg/ (Sodium Chloride) 251 mls @ 0 mls/hr IVPB INF [facility]; Protocol Nitroglycerin/Dextrose (Nitroglycerin 50 Mg/250 Ml Bot) 250 mls @ 0 mls/hr IVPB PRN PRN; Protocol PRN Reason: To Keep SBP < 140 mmHG Sodium Chloride (Normal Saline 0.9%) 1,000 mls @ 100 mls/hr IV .Q10H [facility] Last Admin: 02/03/18 12:09 Dose: Not Given Levofloxacin (Levaquin) 750 mg PO 0600 [facility] Last Admin: 02/03/18 05:42 Dose: 750 mg Nicotine (Nicoderm Patch) 21 mg TD DAILY [facility] Last Admin: 02/03/18 08:00 Dose: Not Given Ondansetron HCl (Zofran Odt) 4 mg PO Q6H PRN PRN Reason: Nausea/Vomiting Ondansetron HCl (Zofran) 4 mg IVP Q6H PRN PRN Reason: Nausea/Vomiting Lum[place] 1 Drop 0 each EA EYE HS [facility] Last Admin: 02/02/18 20:45 Dose: 1 each Promethazine HCl (Phenergan) 6.25 mg IM Q4H PRN PRN Reason: Nausea/Vomiting Sodium Chloride (Flush - Normal Saline) 10 ml IVF Q12HR [facility] Sodium Chloride (Flush - Normal Saline) 10 ml IVF PRN PRN PRN Reason: Saline Flush
[2018-02-03] MEDS: Atorvastatin Calcium 20 MG TAB PO SCH (20:30)
[2018-02-03] MEDS: LUMIGAN EA EYE SCH (20:32)
[2018-02-04] MEDS: CEFAZOLIN/Water 2 GM/20 ML SYRINGE SLOW IVP SCH ×2 (00:01→08:25)
[2018-02-04] MEDS: Acetaminophen 325 MG TAB PO PRN (05:38)
[2018-02-04] MEDS: Aspirin 325 MG TAB PO SCH (08:31)
[2018-02-04] MEDS: Famotidine 20 MG TAB PO SCH ×2 (08:31→20:10)
[2018-02-04] MEDS: Nicotine 21 MG PATCH TD SCH (08:32)
[2018-02-04] MEDS: Sodium Chloride 0.9% 1,000 ML IV SCH (08:33)
[2018-02-04] MEDS: HYDROcodone/Acetaminophen 5/325 mg Tablet PO PRN ×2 (14:02→20:10)
--- NOTE | 2018-02-04 16:59 | PDOC.PN ---
- Subjective Encounter Start Date: 02/04/18 Encounter Start Time: 07:30 Pt seen for followup re: carotid stenosis. Denies any complaints. - Objective Resuscitation Status: Resuscitation Status FULL:Full Resuscitation MAR Reviewed: Yes Vital Signs & Weight: Vital Signs (12 hours) Temp Pulse Pulse Pulse Resp BP BP 02/04/18 15:49 99.1 F 102 H 16 02/04/18 12:53 80 14 02/04/18 11:42 98.4 F 99 16 02/04/18 11:16 117/73 02/04/18 09:09 98.4 F 97 18 02/04/18 09:05 98 97 183/97 H 158/92 H 02/04/18 08:00 98.4 F 97 18 02/04/18 07:31 82 15 02/04/18 05:00 98.4 F BP Pulse Ox 02/04/18 15:49 145/78 H 98 02/04/18 12:53 02/04/18 11:42 117/73 98 02/04/18 11:16 02/04/18 09:09 158/92 H 99 02/04/18 09:05 02/04/18 08:00 100 02/04/18 07:31 99 02/04/18 05:00 Weight Weight 158 lb 3.2 oz Most Recent Monitor Data Heart Rate from ECG 93 NIBP 125/75 NIBP BP-Mean 98 Respiration from ECG 17 SpO2 100 I&O: 02/03/18 02/04/18 02/05/18 06:59 06:59 06:59 Intake Total 1810 2900 800 Output Total 625 2250 125 Balance 1185 650 675 Result Diagrams: 01/30/18 03:48 01/30/18 03:48 EKG Reviewed by me: Yes (Tele: NSR) Phys Exam - Physical Examination Constitutional: NAD HEENT: moist MMs Neck: supple Respiratory: clear to auscultation bilateral Cardiovascular: RRR Gastrointestinal: soft Neurological: moves all 4 limbs Psychiatric: normal affect Dx/Plan (1) Carotid stenosis Code(s): I65.29 - OCCLUSION AND STENOSIS OF UNSPECIFIED CAROTID ARTERY Status : Acute Comment: s/p R carotid endarterectomy (2) CVA (cerebral vascular accident) Code(s): I63.9 - CEREBRAL INFARCTION, UNSPECIFIED Status: Acute Comment: continue aspirin and statin (3) Mass of submandibular region Code(s): R22.0 - LOCALIZED SWELLING, MASS AND LUMP, HEAD Status: Acute Comment: Likely for treatment in March (4) Pneumonia Code(s): J18.9 - PNEUMONIA, UNSPECIFIED ORGANISM Status: Acute Comment: continue levofloxacin (5) Tobacco abuse Code(s): Z72.0 - TOBACCO USE Status: Chronic Comment: continue nicotine patch. - Plan * . Review of Systems - Review of Systems Respiratory: negative: Cough, Shortness of Breath, SOB with Excertion, Pleuritic Pain, Wheezing Cardiovascular: negative: chest pain, palpitations, orthopnea, paroxysmal nocturnal dyspnea, edema, light headedness - Medications/Allergies Allergies/Adverse Reactions: Allergies Allergy/AdvReac Type Severity Reaction Status Date / Time No Known Allergies Allergy Verified 01/26/18 23:40 Medications: Current Medications Acetaminophen (Tylenol) 650 mg [place] Q4H PRN PRN Reason: Headache/Fever or Pain Acetaminophen (Tylenol) 650 mg PO Q4H PRN PRN Reason: Fever > 101 or headache Last Admin: 02/04/18 05:38 Dose: 650 mg Hydrocodone Bitart/Acetaminophen ([place] 5/325) 1 tab PO Q4H PRN PRN Reason: Mild Pain (1-3) Last Admin: 02/04/18 14:02 Dose: 1 tab Hydrocodone Bitart/Acetaminophen ([place] 5/325) 2 tab PO Q4H PRN PRN Reason: Moderate Pain (4-6) Albuterol/Ipratropium (Duoneb) 3 ml NEB [id number] PRN PRN Reason: SHORTNESS OF BREATH Albuterol/Ipratropium (Duoneb) 3 ml NEB [id number] [facility] Last Admin: 02/04/18 12:53 Dose: 3 ml Aspirin (Aspirin) 325 mg PO DAILY [facility] Last Admin: 02/04/18 08:31 Dose: 325 mg Atorvastatin Calcium (Lipitor) 20 mg PO HS [facility] Last Admin: 02/03/18 20:30 Dose: 20 mg Famotidine (Pepcid) 20 mg PO BID [facility] Last Admin: 02/04/18 08:31 Dose: 20 mg Hydralazine HCl (Apresoline) 10 mg SLOW IVP Q4H PRN PRN Reason: Systolic BP > 180 Levofloxacin (Levaquin) 750 mg PO 0600 [facility] Last Admin: 02/04/18 05:35 Dose: 750 mg Nicotine (Nicoderm Patch) 21 mg TD DAILY [facility] Last Admin: 02/04/18 08:32 Dose: 21 mg Ondansetron HCl (Zofran Odt) 4 mg PO Q6H PRN PRN Reason: Nausea/Vomiting [place] 1 Drop 0 each EA EYE HS [facility] Last Admin: 02/03/18 20:32 Dose: 1 each Sodium Chloride (Flush - Normal Saline) 10 ml IVF Q12HR [facility] Last Admin: 02/04/18 08:32 Dose: 10 ml
[2018-02-04] MEDS: Atorvastatin Calcium 20 MG TAB PO SCH (20:10)
[2018-02-04] MEDS ORDERED: cloNIDine 0.1 MG TAB PO PRN (21:31)
[2018-02-04] MEDS ORDERED: Labetalol 100 MG TAB PO PRN (21:34)
[2018-02-04] MEDS: LUMIGAN EA EYE SCH (22:35)
[2018-02-05] MEDS: Acetaminophen 325 MG TAB PO PRN (00:02)
[2018-02-05] MEDS: Famotidine 20 MG TAB PO SCH ×2 (09:13→20:16)
[2018-02-05] MEDS: HYDROcodone/Acetaminophen 5/325 mg Tablet PO PRN ×2 (09:13→16:46)
[2018-02-05] MEDS: Aspirin 325 MG TAB PO SCH (09:13)
[2018-02-05] MEDS: Nicotine 21 MG PATCH TD SCH (09:15)
--- NOTE | 2018-02-05 11:57 | PDOC.PN ---
- Subjective Encounter Start Date: 02/05/18 Encounter Start Time: 07:40 Pt seen for followup re: carotid stenosis. Denies chest pain, shortness of breath, fevers or chills. No nausea or vomiting. - Objective Resuscitation Status: Resuscitation Status FULL:Full Resuscitation MAR Reviewed: Yes Vital Signs & Weight: Vital Signs (12 hours) Temp Pulse Resp BP Pulse Ox 02/05/18 11:53 98.6 F 107 H 16 135/71 99 02/05/18 08:20 98.4 F 117 H 16 02/05/18 08:00 98.4 F 117 H 16 128/65 97 02/05/18 06:58 112 H 16 94 L 02/05/18 03:15 98.8 F 116 H 16 128/74 90 L 02/05/18 00:13 108 H 12 Weight Weight 158 lb 3.2 oz Most Recent Monitor Data Heart Rate from ECG 93 NIBP 125/75 NIBP BP-Mean 98 Respiration from ECG 17 SpO2 100 I&O: 02/04/18 02/05/18 02/06/18 06:59 06:59 06:59 Intake Total 2900 1250 300 Output Total 2250 525 400 Balance 650 725 -100 Result Diagrams: 01/30/18 03:48 01/30/18 03:48 EKG Reviewed by me: Yes (Tele: sinus tachycardia) Phys Exam - Physical Examination Constitutional: NAD HEENT: moist MMs Neck: supple Respiratory: clear to auscultation bilateral Cardiovascular: RRR Gastrointestinal: soft Neurological: moves all 4 limbs Psychiatric: normal affect Dx/Plan (1) Carotid stenosis Code(s): I65.29 - OCCLUSION AND STENOSIS OF UNSPECIFIED CAROTID ARTERY Status : Acute Comment: s/p R carotid endarterectomy, continue aspirin and statin. Needs to follow up with CV surgery as outpt re: L carotid stenosis (2) CVA (cerebral vascular accident) Code(s): I63.9 - CEREBRAL INFARCTION, UNSPECIFIED Status: Acute Comment: on aspirin and statin (3) Mass of submandibular region Code(s): R22.0 - LOCALIZED SWELLING, MASS AND LUMP, HEAD Status: Acute Comment: Likely for treatment in March. Pt needs to go to [facility] at that time. (4) Pneumonia Code(s): J18.9 - PNEUMONIA, UNSPECIFIED ORGANISM Status: Acute Comment: levofloxacin (5) Tobacco abuse Code(s): Z72.0 - TOBACCO USE Status: Chronic Comment: nicotine patch. - Plan * . Review of Systems - Review of Systems Respiratory: negative: Cough, Shortness of Breath, SOB with Excertion, Pleuritic Pain, Wheezing Cardiovascular: negative: chest pain, palpitations, orthopnea, paroxysmal nocturnal dyspnea, edema, light headedness, other - Medications/Allergies Allergies/Adverse Reactions: Allergies Allergy/AdvReac Type Severity Reaction Status Date / Time No Known Allergies Allergy Verified 01/26/18 23:40 Medications: Current Medications Acetaminophen (Tylenol) 650 mg AK Q4H PRN PRN Reason: Headache/Fever or Pain Acetaminophen (Tylenol) 650 mg PO Q4H PRN PRN Reason: Fever > 101 or headache Last Admin: 02/05/18 00:02 Dose: 650 mg Hydrocodone Bitart/Acetaminophen ([place] 5/325) 1 tab PO Q4H PRN PRN Reason: Mild Pain (1-3) Last Admin: 02/05/18 09:13 Dose: 1 tab Hydrocodone Bitart/Acetaminophen ([place] 5/325) 2 tab PO Q4H PRN PRN Reason: Moderate Pain (4-6) Albuterol/Ipratropium (Duoneb) 3 ml NEB [id number] PRN PRN Reason: SHORTNESS OF BREATH Albuterol/Ipratropium (Duoneb) 3 ml NEB [id number] [facility] Last Admin: 02/05/18 06:58 Dose: 3 ml Aspirin (Aspirin) 325 mg PO DAILY [facility] Last Admin: 02/05/18 09:13 Dose: 325 mg Atorvastatin Calcium (Lipitor) 20 mg PO HS [facility] Last Admin: 02/04/18 20:10 Dose: 20 mg Clonidine (Catapres) 0.1 mg PO Q4H PRN PRN Reason: Hypertension Famotidine (Pepcid) 20 mg PO BID [facility] Last Admin: 02/05/18 09:13 Dose: 20 mg Hydralazine HCl (Apresoline) 10 mg SLOW IVP Q4H PRN PRN Reason: Systolic BP > 180 Labetalol HCl (Normodyne) 100 mg PO BID PRN PRN Reason: Hypertension Levofloxacin (Levaquin) 750 mg PO 0600 [facility] Last Admin: 09/05/18 06:24 Dose: 750 mg Nicotine (Nicoderm Patch) 21 mg TD DAILY [facility] Last Admin: 02/05/18 09:15 Dose: 21 mg Ondansetron HCl (Zofran Odt) 4 mg PO Q6H PRN PRN Reason: Nausea/Vomiting Lumigan 1 Drop 0 each EA EYE HS [facility] Last Admin: 02/04/18 22:35 Dose: Not Given Sodium Chloride (Flush - Normal Saline) 10 ml IVF Q12HR [facility] Last Admin: 02/05/18 08:50 Dose: Not Given
[2018-02-05] MEDS ORDERED: ISOVUE-370 76%-LOCM 1 ML ONE (14:13)
--- NOTE | 2018-02-05 17:04 | CT ---
CTA THORAX WITH CONTRAST: 02/05/18 at 4:25 p.m. (Computed Tomographic Angiography, chest(noncoronary) with contrast material, and image postprocessin g) (PE protocol) HISTORY: 62-year-old male with elevated D-dimer. TECHNIQUE: IV injection of iodinated contrast: Isovue Scan acquisition timing attempted to coincide with iodinated contrast bolus reaching maximal density in pulmonary arteries. 3D MIP reconstructions. FINDINGS: There is no pulmonary thromboembolism. There is extensive calcified and noncalcified plaque throughou t the aortic arch and descending thoracic aorta. Prominent calcified plaque causing stenosis of proxi mal left subclavian artery. Multifocal atherosclerotic plaque at other great vessels. No cardiomegaly or pericardial effusion. No mediastinal lymphadenopathy. Nonspecific mildly enlarged bilateral hilar lymph nodes. No pulmonary edema, consolidation, pleural effusion or pneumothorax. The previously dem onstrated bilateral upper lobe infiltrates representing pneumonia, have resolved. There is a tiny stellate noncalcified pulmonary density in the lateral aspect of the left mid lung zo ne. The craniocaudal dimension is 4 mm regarding the main portion of the nodule (coronal image 60 of 115, series 400; axial image 63 of 124, series 3). This area was obscured by the infiltrate on the pr evious chest CT of 01/27/18. Minimal interstitial densities at the lateral aspect of the right upper l obe mid lung field are either sequelae or residua from the previous, more severe infiltrate. Trachea and major bronchi are patent and clear. No thoracic aortic aneurysm or dissection. Again noted are th e bilateral adrenal adenomas. IMPRESSION: 1. No evidence of pulmonary thromboembolism. 2. Extensive atherosclerosis of major arteries, including stenosis of left proximal subclavian a rtery. 3. Tiny stellate noncalcified pulmonary nodule in the lateral aspect of the left upper lobe at t he level of the hilum. This would be too small for PET scan. Recommend serial followup noncontrast ch est CTs, beginning in six months. marsha[] POS: [facility]
[2018-02-05] MEDS: LUMIGAN EA EYE SCH (20:14)
[2018-02-05] MEDS: Atorvastatin Calcium 20 MG TAB PO SCH (20:16)
[2018-02-06] MEDS: Aspirin 325 MG TAB PO SCH (08:50)
[2018-02-06] MEDS: Famotidine 20 MG TAB PO SCH ×2 (08:51→20:04)
[2018-02-06] MEDS: HYDROcodone/Acetaminophen 5/325 mg Tablet PO PRN ×3 (08:51→20:24)
[2018-02-06] MEDS: Nicotine 21 MG PATCH TD SCH (08:51)
--- NOTE | 2018-02-06 11:52 | PDOC.PN ---
- Subjective Encounter Start Date: 02/06/18 Encounter Start Time: 09:00 Subjective: no sob or cough, feels better -: is ambulating with PT, a bit weak on left extremities - Objective Resuscitation Status: Resuscitation Status FULL:Full Resuscitation MAR Reviewed: Yes Vital Signs & Weight: Vital Signs (12 hours) Temp Pulse Resp BP Pulse Ox 02/06/18 08:15 110 H 18 97 02/06/18 08:00 99.6 F 110 H 18 145/79 H 96 02/06/18 07:24 98.6 F 106 H 14 02/06/18 04:00 98.6 F 106 H 14 130/81 92 L 02/06/18 00:05 112 H 16 02/06/18 00:00 98.5 F 119 H 20 149/81 H 93 L Weight Weight 158 lb 3.2 oz Most Recent Monitor Data Heart Rate from ECG 93 NIBP 125/75 NIBP BP-Mean 98 Respiration from ECG 17 SpO2 100 I&O: 02/05/18 02/06/18 02/07/18 06:59 06:59 06:59 Intake Total 1250 1610 300 Output Total 525 400 Balance 725 1210 300 Result Diagrams: 01/30/18 03:48 01/30/18 03:48 Phys Exam - Physical Examination HEENT: PERRLA, moist MMs left mandibular area mass seen tethering to bone Neck: no JVD, supple Respiratory: no wheezing, no rales Cardiovascular: RRR, no significant murmur Gastrointestinal: soft, non-tender, positive bowel sounds Musculoskeletal: no edema, pulses present left hemiparesis with strength of around 4/5 Psychiatric: normal affect, A&O x 3 Dx/Plan (1) CVA (cerebral vascular accident) Code(s): I63.9 - CEREBRAL INFARCTION, UNSPECIFIED Status: Acute Comment: on aspirin and statin, right post frontoparietal area cva (2) Carotid stenosis Code(s): I65.29 - OCCLUSION AND STENOSIS OF UNSPECIFIED CAROTID ARTERY Status : Acute Qualifiers: Laterality: bilateral Qualified Code(s): I65.23 - Occlusion and stenosis of bilateral carotid arteries Comment: s/p R carotid endarterectomy 02/03/2018, continue aspirin and statin. (3) Mass of submandibular region Code(s): R22.0 - LOCALIZED SWELLING, MASS AND LUMP, HEAD Status: Acute Comment: squamous cell carcinom unclear primary?, Pt needs higher level of care for surgery (4) Tobacco abuse Code(s): Z72.0 - TOBACCO USE Status: Chronic Comment: nicotine patch. - Plan on asp, lipitor -: will add lopressor bid -: may dc levaquin on discharge -: dc plan in am, d/w case management, will get his medicare on mar 03 * . Review of Systems - Medications/Allergies Allergies/Adverse Reactions: Allergies Allergy/AdvReac Type Severity Reaction Status Date / Time No Known Allergies Allergy Verified 01/26/18 23:40 Medications: Current Medications Acetaminophen (Tylenol) 650 mg OR Q4H PRN PRN Reason: Headache/Fever or Pain Acetaminophen (Tylenol) 650 mg PO Q4H PRN PRN Reason: Fever > 101 or headache Last Admin: 02/05/18 00:02 Dose: 650 mg Hydrocodone Bitart/Acetaminophen ([place] 5/325) 1 tab PO Q4H PRN PRN Reason: Mild Pain (1-3) Last Admin: 02/06/18 08:51 Dose: 1 tab Hydrocodone Bitart/Acetaminophen ([place] 5/325) 2 tab PO Q4H PRN PRN Reason: Moderate Pain (4-6) Last Admin: 02/05/18 20:54 Dose: 2 tab Albuterol/Ipratropium (Duoneb) 3 ml NEB [id number] PRN PRN Reason: SHORTNESS OF BREATH Albuterol/Ipratropium (Duoneb) 3 ml NEB [id number] [facility] Last Admin: 02/06/18 08:15 Dose: 3 ml Aspirin (Aspirin) 325 mg PO DAILY [facility] Last Admin: 02/06/18 08:50 Dose: 325 mg Atorvastatin Calcium (Lipitor) 20 mg PO HS [facility] Last Admin: 02/05/18 20:16 Dose: 20 mg Clonidine (Catapres) 0.1 mg PO Q4H PRN PRN Reason: Hypertension Famotidine (Pepcid) 20 mg PO BID [facility] Last Admin: 02/06/18 08:51 Dose: 20 mg Hydralazine HCl (Apresoline) 10 mg SLOW IVP Q4H PRN PRN Reason: Systolic BP > 180 Labetalol HCl (Normodyne) 100 mg PO BID PRN PRN Reason: Hypertension Levofloxacin (Levaquin) 750 mg PO 0600 [facility] Last Admin: 02/06/18 06:04 Dose: 750 mg Nicotine (Nicoderm Patch) 21 mg TD DAILY [facility] Last Admin: 02/06/18 08:51 Dose: 21 mg Ondansetron HCl (Zofran Odt) 4 mg PO Q6H PRN PRN Reason: Nausea/Vomiting Lumigan 1 Drop 0 each EA EYE HS [facility] Last Admin: 02/05/18 20:14 Dose: Not Given Sodium Chloride (Flush - Normal Saline) 10 ml IVF Q12HR [facility] Last Admin: 02/06/18 08:51 Dose: 10 ml
[2018-02-06] MEDS: Atorvastatin Calcium 20 MG TAB PO SCH (20:04)
[2018-02-06] MEDS: LUMIGAN EA EYE SCH (20:07)
[2018-02-07] MEDS: HYDROcodone/Acetaminophen 5/325 mg Tablet PO PRN (07:40)
[2018-02-07] MEDS ORDERED: Metoprolol Tartrate 25 MG TAB PO SCH (09:00)
[2018-02-07] MEDS: Famotidine 20 MG TAB PO SCH (09:36)
[2018-02-07] MEDS: Aspirin 325 MG TAB PO SCH (09:36)
[2018-02-07] MEDS: Nicotine 21 MG PATCH TD SCH (09:37)
--- NOTE | 2018-02-07 10:04 | PDOC.PN ---
- Subjective Encounter Start Date: 02/07/18 Encounter Start Time: 08:00 Subjective: is ambulating with PT in hallway with rolling walker -: feels better - Objective Resuscitation Status: Resuscitation Status FULL:Full Resuscitation MAR Reviewed: Yes Vital Signs & Weight: Vital Signs (12 hours) Temp Pulse Resp BP Pulse Ox 02/07/18 08:30 98.2 F 121 H 16 92 L 02/07/18 08:00 98.2 F 121 H 16 138/83 90 L 02/07/18 04:00 99.2 F 108 H 16 115/76 90 L 02/07/18 00:14 98.6 F 115 H 16 100/63 93 L 02/06/18 23:57 118 H 12 95 Weight Weight 158 lb 3.2 oz Most Recent Monitor Data Heart Rate from ECG 93 NIBP 125/75 NIBP BP-Mean 98 Respiration from ECG 17 SpO2 100 I&O: 02/06/18 02/07/18 02/08/18 06:59 06:59 06:59 Intake Total 1610 1630 Output Total 400 300 Balance 1210 1330 Result Diagrams: 01/30/18 03:48 01/30/18 03:48 Phys Exam - Physical Examination HEENT: PERRLA, moist MMs left mandibular mass++ Neck: no JVD, supple Respiratory: no wheezing, no rales Cardiovascular: RRR, no significant murmur Gastrointestinal: soft, non-tender, positive bowel sounds Musculoskeletal: no edema, pulses present Neurological: non-focal, moves all 4 limbs Psychiatric: normal affect, A&O x 3 Dx/Plan (1) CVA (cerebral vascular accident) Code(s): I63.9 - CEREBRAL INFARCTION, UNSPECIFIED Status: Acute Comment: on aspirin and statin, right post frontoparietal area cva (2) Carotid stenosis Code(s): I65.29 - OCCLUSION AND STENOSIS OF UNSPECIFIED CAROTID ARTERY Status : Acute Qualifiers: Laterality: bilateral Qualified Code(s): I65.23 - Occlusion and stenosis of bilateral carotid arteries Comment: s/p R carotid endarterectomy 02/03/2018, continue aspirin and statin. (3) Mass of submandibular region Code(s): R22.0 - LOCALIZED SWELLING, MASS AND LUMP, HEAD Status: Acute Comment: squamous cell carcinom unclear primary?, Pt needs higher level of care for surgery (4) Tobacco abuse Code(s): Z72.0 - TOBACCO USE Status: Chronic Comment: nicotine patch. - Plan hemo/neuro stable -: to f/u with onc as adv/pcp today -: may dc home * .
[2018-02-07 12:07] VITALS: BP 154/87; TEMP 97.4
--- NOTE | 2018-02-07 20:05 | DIS ---
DATE OF ADMISSION: 01/26/2018 DATE OF DISCHARGE: 02/07/2018 DISCHARGE DISPOSITION: To home. 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 PROCEDURES DONE DURING HOSPITALIZATION: CT brain done on the day of admission showed small infarct in the left occipital lobe of indeterminate age, but probably subacute to chronic. There is severe chronic small vessel ischemic changes seen with an area of encephalomalacia in the right parietal lobe, probably related to remote area of infarct. There is also remote infarct in the right cerebellar hemisphere lacunar infarcts in the left basal ganglia of indeterminate age. Cerebral and cerebellar volume loss. CT angio brain done showed no focal stenosis or branch occlusion was seen involving [place] or vertebrobasilar system. Left occipital lobe infarct was again seen, severe greater than 70% stenosis involving proximal bilateral internal carotid arteries with focal areas of critical stenosis involving proximal internal carotid artery bilaterally. There is also prominent irregular atherosclerotic plaque involving left internal carotid artery. There is a large mass which appears to emanate from the floor of the mouth adjacent to and extending inferior to the left mandible worrisome for a neoplastic process. There is just an irregularity of the mandible suggesting osseous involvement. There is bilateral interstitial and parenchymal opacity seen in bilateral upper lobe suggestive of possible atypical pneumonia. Focal moderate stenosis involving proximal left subclavian artery just proximal to the takeoff of the left vertebral artery. CT chest showed findings of multifocal pneumonia, mild to moderate COPD changes, bilateral adrenal adenomas were seen. Left submandibular mass biopsy done showed moderately differentiated squamous cell carcinoma. There is a background of extensive lymphocytic infiltrates seen in this. Fine needle aspiration of the left submandibular mass showed non-small cell carcinoma favoring squamous cell carcinoma. Echo with 2D Doppler showed an EF of 60%-65%. There was diastolic dysfunction, no thrombus were noted in the cardiac chambers. MRI brain done on 01/29/2018 showed small focus of acute infarct over the right posterior frontoparietal convexity region. There is extensive atrophy with chronic white matter changes, had right carotid endarterectomy with patch angioplasty done by Dr. Butler on 02/03/2018. Lymph node biopsy in the right jugular chain showed benign reactive lymph nodes. CT angio chest done on 02/05/2018 showed no evidence of PE. There was extensive arthrosclerosis of major arteries including stenosis of left proximal subclavian artery. There is tiny stellate noncalcified pulmonary nodule in the lateral aspect of the left upper lobe at the level of the hilum. This would be too small for PET scan. H and H 13 and 39, platelet count is 272. Had an initial white count of 34 on the day of admission with 17% bands. BUN 10, creatinine 0.7, total cholesterol 127, triglycerides 109, LDL 75, HDL 30. INPATIENT CONSULTS: Dr. Butler for Vascular Surgery, Dr. Hoover for Radiation Oncology. Ms. Yenny Stockton for Oncology, Dr. Theodore Currie for ENT, Dr. Stephie Espinosa for Neurology. BRIEF COURSE DURING HOSPITALIZATION: Patient initially came to ER with complaints of slurred speech, left arm and leg weakness. He has had initial stroke workup done which were positive for CVA. He has had multiple prior infarcts as well on the initial CAT scan. A complete stroke workup was done. He was also found to be having critical stenosis in bilateral carotid arteries. He has had a left submandibular mass which is clearly visible and ENT consultation with Dr. Kush Jaimes was requested. He has had fine needle aspiration of the mass done which shows squamous cell carcinoma. There is also possible involvement of the mandible. In view of his current acute stroke, patient needs to wait for at least 2-3 weeks prior to getting definitive treatment for the same. He likely needs higher level of care for surgery for the mandibular mass with involvement of the mandible, likely COMMANDO or similar procedure. He has had right carotid endarterectomy done by Dr. Butler on 02/03/2018. Prior to discharge, he is ambulating with a rolling walker. He was also evaluated by Dr. Vel Hoover for Radiation Oncology, and Ms. Yenny Stockton, nurse practitioner for Oncology group. Patient is trying to get his Medicare on 03/03/2018 and would like to follow up with Oncology for further workup towards his left mandibular mass which is a squamous cell carcinoma. He was optimized on medications for his stroke. All his medications have been faxed to his pharmacy. He was counseled with regards to complete tobacco use cessation. He is hemodynamically stable and will be shortly discharged home. Please see a [id number] documentation on [facility] for the day of discharge. [facility] [place]
== END 2018-02-07 12:36 | disposition home or self-care (01) | DRG 37 ==
LOC: EDBD 16:27 → ERS 16:27 → 2SE 21:26 → CCU 02-03 10:53 → 2SE 02-04 08:58
PROVIDERS: ADMIT Family Medicine; ATTEND Family Medicine
PROC: 0J953ZX Drainage of Left Neck Subcutaneous Tissue and Fascia, Percutaneous Approach, Diagnostic (ICD-10-PCS; 2018-01-27)
PROC: 0JB50ZX Excision of Left Neck Subcutaneous Tissue and Fascia, Open Approach, Diagnostic (ICD-10-PCS; 2018-01-27)
PROC: 03CH0ZZ Extirpation of Matter from Right Common Carotid Artery, Open Approach (ICD-10-PCS; principal; 2018-02-03)
PROC: 03CM0ZZ Extirpation of Matter from Right External Carotid Artery, Open Approach (ICD-10-PCS; 2018-02-03)
DX: I63.231 Cerebral infarction due to unspecified occlusion or stenosis of right carotid arteries (principal); J18.9 Pneumonia, unspecified organism; G81.94 Hemiplegia, unspecified affecting left nondominant side; I65.21 Occlusion and stenosis of right carotid artery; C08.0 Malignant neoplasm of submandibular gland; F17.200 Nicotine dependence, unspecified, uncomplicated; D64.9 Anemia, unspecified; I10 Essential (primary) hypertension; R29.714 NIHSS score 14
CPT/HCPCS: 36415; 70450; 70496; 70498; 70551; 71045; 71250; 71275; 80048; 80053; 80061; 81003; 82553; 83605; 83735; 84484; 85025; 85379; 85610; 85730; 86850; 86900; 86901; 87040; 87070; 87081; 87086; 87205; 88173; 88305; 88307; 90471; 90732; 93005; 93306; 94640; 96365; A4216; G0009; G8978-GP-CK; G8979-GP-CI; G8987-GO-CK; G8987-GO-CL; G8988-GO-CI; G8996-GN-CI; G8997-GN-CI; J0360; J1642; J1644; J1650; J1956; J2001; J2250; J2370; J2405; J2704; J2720; J3010; J3370; J7050; J7620

== ENCOUNTER 2018-02-09 12:33 | Inpatient (IN) | payer SELFPAY ==
--- NOTE | 2018-02-09 12:53 | CT ---
BRAIN CT WITHOUT IV CONTRAST: HISTORY: A 62-year-old male with a history of stroke, left-sided deficits, history of stroke with pre-existing left facial droop. COMPARISON: 01/26/18. FINDINGS: Atrophy and chronic white matter ischemic changes. Patchy stable encephalomalacic changes in the rig ht posterior frontal region. No mass or midline shift. No intra- or extraaxial hemorrhage. IMPRESSION: Atrophy and chronic white matter ischemic changes. Stable posterior right frontoparietal old infarct changes. Findings discussed with Dr. Chavez at 12:44 p.m. CODE CR POS: [facility]
[2018-02-09 13:00] LABS: #Basophils 0.1 thou/uL (0.0-0.2); #Eosinphils 0.3 thou/uL (0.0-0.7); #Lymphocytes 3.1 thou/uL (1.20-3.40); #Monocytes 1.1 thou/uL (0.11-0.59); %Basophils 0.6 % (0.0-1.0); %Eosinophils 1.7 % (0.0-10.0); %Monocytes 5.6 % (0.0-10.0); %Neutrophils 76.2 % (42.0-75.0); Hemoglobin 12.9 g/dL (14.0-18.0); Mean Corpuscular HGB CONC 34.1 g/dL (32.0-36.0); Mean Corpuscular Hemoglobin 31.9 pg (27.0-31.0); Mean Corpuscular Volume 93.6 fL (78.0-98.0); Mean Platelet Volume 6.9 fL (7.4-10.4); Platelet Count 434 thou/uL (130-400); RBC Distribution Width 11.8 % (11.5-14.5); Red Blood Cell (RBC) Count 4.06 mill/uL (4.70-6.10); White Blood Cell (WBC) Count 19.6 thou/uL (4.8-10.8)
[2018-02-09 13:07] LABS: PTT 38.1 SEC (22.9-36.1); Prothrombin Time 13.4 SEC (12.0-14.7)
[2018-02-09 13:15] LABS: ALT (SGPT) 9 U/L (8-55); AST (SGOT) 17 U/L (5-34); Albumin 3.9 g/dL (3.4-4.8); Alkaline Phosphatase 68 U/L (40-150); Anion Gap 16 mmol/L (10-20); BUN (Urea Nitrogen) 15 mg/dL (8.4-25.7); Bilirubin, Total 0.5 mg/dL (0.2-1.2); Calc. Creatinine Clearance 0 mL/min (70-130); Calcium 9.8 mg/dL (7.8-10.44); Carbon Dioxide 24 mmol/L (23-31); Chloride 101 mmol/L (98-107); Estimated GFR-MDRD 81; Globulin 3.8 g/dL (2.4-3.5); Glucose 113 mg/dL (80-115); Protein, Total 7.7 g/dL (5.8-8.1); Sodium 137 mmol/L (136-145)
[2018-02-09 13:18] LABS: CKMB 1.6 ng/mL (0-6.6); Troponin I Less than 0.010 ng/mL (< 0.028)
--- NOTE | 2018-02-09 13:49 | RAD ---
FRONTAL RADIOGRAPH CHEST PORTABLE UPRIGHT: DATE: 02/09/18. COMPARISON: 01/26/18. HISTORY: Stroke alert patient. FINDINGS: There is atherosclerotic calcification of the aortic arch. NO pneumothorax, pleural fluid, focal con solidation, or alveolar edema. IMPRESSION: No acute findings. POS: [facility]
[2018-02-09 14:20] LABS: Bilirubin Negative (Negative); Blood, Urine Negative (Negative); Clarity CLEAR (Clear); Glucose, Urine (Dipstick) Negative (Negative); Leukocyte Negative (Negative); Nitrite Negative (Negative); Protein, Urine (Dipstick) Negative (Neg-Trace); Urobilinogen 0.2 mg/dL (0.2-1.0)
[2018-02-09] MEDS ORDERED: Metoprolol Tartrate 5 MG/5 ML VIAL ONE ×2 (14:36→14:54)
[2018-02-09 14:53] LABS: pH, Arterial 7.26 (7.35-7.45)
[2018-02-09 14:54] LABS: Actual Bicarbonate (HCO3a) 29.9 mEq/L (22-28); Base Excess (BEa) 0.8 mEq/L (-2.0 to +3.0); CO2 Tension 70.2 mmHg (35.0-45.0); Hemoglobin (Hb) 13.6 g/dL (14.0-18.0); O2 Tension (PaO2) 59.5 mmHg (> 80.0)
[2018-02-09 14:55] LABS: Analyzer IN Cardio ER; Calcium, Ionized 1.22 mmol/L (1.12-1.30); Carboxyhemoglobin (COHb) 0.6 gm% (0.0-3.0); Potassium - ABG Lab 3.8 mmol/L (3.70-5.30); Puncture Site RR
--- NOTE | 2018-02-09 14:59 | CT ---
BRAIN CT ANGIOGRAM WITH 3D RENDERING NECK CT ANGIOGRAM WITH 3D RENDERING: COMPARISON: 01/26/18. FINDINGS: BRAIN CT ANGIOGRAM WITH 3D RENDERING: No evidence for major branch occlusion involving the intracranial MCA, ALONDRA, or posterior cerebral art eries or vertebrobasilar artery. Stable-appearing right-sided old infarct changes. No new findings when compared to the prior study. NECK CT ANGIOGRAM INCLUDING 3D RENDERING: Using NASCET criteria, there is greater than 70% stenosis of the origin of the left ICA. There is so me moderate stenosis in the left CCA and left subclavian artery origin. High-grade approximately 70% stenosis of the origin of the left ICA using NASCET criteria. Stable-appearing very large mass invo lving the left floor of the mouth adjacent to the left mandible which may be somewhat eroded. This i s stable from the prior study. Stable lipoma in the posterior neck strap muscles. Improvement in th e previously noted bilateral patchy pulmonary lung disease. Findings were discussed with Dr. Chavez at 2:48 p.m. Stable findings from prior head and neck CT angiogram of 01/26/18. No evidence for high-grade major branch occlusion intracranially. CODE CR POS: [facility]
[2018-02-09] MEDS ORDERED: niCARdipine 20MG In NaCl 20 MG/200 ML BAG ONE (15:20)
[2018-02-09] MEDS ORDERED: levETIRAcetam In NaCl (Iso-Os) 1,000 MG in Premix Bag 1 BAG IVPB SCH (15:30)
[2018-02-09] MEDS ORDERED: Lorazepam 2 MG/ML VIAL ONE (15:48)
[2018-02-09] MEDS ORDERED: Lorazepam 2 MG/ML VIAL SLOW IVP SCH (15:48)
[2018-02-09 15:52] LABS: Actual Bicarbonate (HCO3a) 24.6 mEq/L (22-28); Base Excess (BEa) -4.5 mEq/L (-2.0 to +3.0); CO2 Tension 62.8 mmHg (35.0-45.0); O2 Tension (PaO2) 129.8 mmHg (> 80.0); pH, Arterial 7.21 (7.35-7.45)
[2018-02-09 15:53] LABS: Calcium, Ionized 1.22 mmol/L (1.12-1.30); Carboxyhemoglobin (COHb) 0.7 gm% (0.0-3.0); Hemoglobin (Hb) 14.4 g/dL (14.0-18.0); Potassium - ABG Lab 3.9 mmol/L (3.70-5.30)
[2018-02-09 15:54] LABS: Analyzer IN Cardio ER; Puncture Site RR
[2018-02-09 17:55] LABS: pH, Arterial 7.24 (7.35-7.45)
[2018-02-09 17:56] LABS: Actual Bicarbonate (HCO3a) 29.5 mEq/L (22-28); Base Excess (BEa) 0.1 mEq/L (-2.0 to +3.0); Carboxyhemoglobin (COHb) 0.9 gm% (0.0-3.0); Hemoglobin (Hb) 13.8 g/dL (14.0-18.0); O2 Tension (PaO2) 68.3 mmHg (> 80.0)
[2018-02-09 17:57] LABS: Potassium - ABG Lab 4.3 mmol/L (3.70-5.30); Puncture Site LB
[2018-02-09] MEDS: Sodium Chloride 0.9% 1,000 ML IV SCH ×2 (18:30→19:55)
[2018-02-09] MEDS ORDERED: Ventilator Sedation Protocol 1 EACH FS SCH (19:17)
[2018-02-09] MEDS ORDERED: Propofol BOLUS 1,000 MG/100 ML VIAL IV PRN (19:21)
[2018-02-09] MEDS ORDERED: DISCONTINUE PREVIOUS NARCOTIC PAIN MEDICATIONS AND BENZODIAZEPINES FS SCH (19:21)
[2018-02-09] MEDS ORDERED: Fentanyl BOLUS 250 ML IVPB PRN (19:21)
[2018-02-09] MEDS ORDERED: fentaNYL Citrate/PF 2,000 MCG in Sodium Chloride 0.9% 60 ML IV SCH (19:21)
[2018-02-09] MEDS ORDERED: Lorazepam 2 MG/ML VIAL SLOW IVP PRN ×2 (19:21→19:50)
--- NOTE | 2018-02-09 19:43 | CON ---
DATE OF CONSULTATION: 02/09/2018 CHIEF COMPLAINT: Possible seizure activity. HISTORY OF PRESENT ILLNESS: Most of the history is obtained from the chart and ER physician who call ed me earlier this afternoon. The patient has history of CVA with right frontoparietal ischemic even t. He had carotid endarterectomy on 02/03/2018. The patient's sister noted left arm twitching and [facility] was called and he was brought to the ER. The patient was also discovered to have hypercapnia with a pCO2 of [address] angiogram of the head and neck in the ER and no significant changes wer e noted per ER doctor and there is no new ischemic event at this time. He has greater than 70% steno sis of the left ICA and moderate stenosis of left CCA and subclavian artery and he has a mass in the left floor of the mouth adjacent to the left mandible, which has eroded and he has a lipoma as well a nd compared to prior CTA, there is no new findings. He still has right-sided old infarct in the fron toparietal area which is old. PAST MEDICAL HISTORY: Patient has had a prior stroke and history of TIA in May and stroke in , hypertension and he had a carotid artery endarterectomy on 02/03/2018. ALLERGIES: No known drug allergies. PAST SURGICAL HISTORY: As noted, carotid endarterectomy. FAMILY HISTORY: Not specified and family members not interviewed at the time of my visit since they were not present. SOCIAL HISTORY: He is a former drug user, abused marijuana, last use 6-7 months ago and he smokes to bacco. REVIEW OF SYSTEMS: Unobtainable due to patient's mental status. He is unconscious. PHYSICAL EXAMINATION: VITAL SIGNS: Blood pressure 128/68, pulse 122, temperature 99.1. GENERAL: The patient is on BiPAP. CHEST: Clear vesicular breathing. Carotids difficult to auscultate due to BiPAP. CARDIOVASCULAR: S1, S2 heard, and he also has a right carotid endarterectomy scar. ABDOMEN: No masses felt. NEUROLOGIC: Pupils reactive to light at 2 mm bilaterally. Left facial asymmetry noted. Rest of pourer crane ladle nial nerves difficult to examine. Motor exam: No withdrawal to any stimuli in all extremities. Farrah p tendon reflexes were absent. LABORATORY WORKUP: White count 19.6, hemoglobin 12.9, hematocrit 38, platelets 434. PT 13.4, INR 1. 0, PTT 38.1. Sodium 137, potassium 4, chloride 101, bicarbonate 24, BUN 15, creatinine 0.94. Serum prolactin 21.28. CT scan of the head reports as noted. IMPRESSION: The patient is a 62-year-old man with prior drug use and prior smoking history. He come s in with left arm twitching intermittently and he has prior history of right frontoparietal stroke, which is an old infarct and he had become unresponsive a little bit before my examination. This coul d be because of Ativan use or worsening of his respiratory status. He has hypercapnia and his blood gases were quite abnormal with pCO2 levels at 70.2 on arrival and 71 on repeat testing. He has had a recent carotid endarterectomy on the right side on 02/03/2018. His examination is difficult to inte rpret other than presence of left arm focal seizures, which I have noted during my testing as well fo r a short period of time. This lasted few seconds and it is primarily a focal seizure in the left up per extremity and he is unresponsive, likely secondary to hypercapnia plus Ativan use. DIAGNOSIS: Consistent with left upper extremity focal seizures and we also need to investigate furth er whether he has had another ischemic event as well. RECOMMENDATIONS: 1. We have already given Keppra, which did not seem to control the focal seizures. Therefore, I lila l add IV fosphenytoin. 2. Please obtain MRI scan of the brain with and without gadolinium tomorrow to understand whether th ere was any new ischemic events. 3. Please monitor neurological status carefully and call if you note any further additional changes in his exam. 4. I will request Dr. Espinosa who will be solar installation technician from tomorrow to follow up the patient.
--- NOTE | 2018-02-09 19:49 | CON ---
DATE OF CONSULTATION: 02/09/2018 CONSULTING PHYSICIAN: Dr. Espinoza. REASON FOR CONSULTATION: Respiratory failure. This encompassed 45 minutes critical care time. HISTORY OF PRESENT ILLNESS: This patient is a 62-year-old male who presented to the emergency room e irma today with left arm twitching which had occurred while patient was using the restroom approxim ately 20 minutes prior to admission. He also had slurred speech. He does have a history of previous strokes. He apparently just had surgery of his right carotid artery. PAST MEDICAL HISTORY: 1. 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 2. TIAs. PAST SURGICAL HISTORY: Right carotid endarterectomy. SOCIAL HISTORY: Formerly used marijuana, smokes 2 packs a day. I am not sure about alcohol intake. PSYCHIATRIC HISTORY: None. ALLERGIES: None. MEDICATIONS PRIOR TO ADMISSION: Hydrochlorothiazide/lisinopril. REVIEW OF SYSTEMS: Cannot be obtained as the patient is totally obtunded. PHYSICAL EXAMINATION: VITAL SIGNS: Pulse 116, blood pressure 158/78, O2 sat 99%, respiratory rate 30. GENERAL: The patient is a disheveled appearing male who looks much older than stated age 62. HEENT: He has bitemporal wasting. He has a large necrotic looking mass below his chin. NECK: He has a right carotid endarterectomy scar, which is fresh, appears to be healing well. LUNGS: Coarse breath sounds. CARDIOVASCULAR: S1, S2 tachycardic. No murmur. ABDOMEN: Soft, nontender, nondistended. EXTREMITIES: No clubbing, cyanosis, or edema. LABORATORY DATA: White blood cell count 19.6, hematocrit 38, platelet count 434. INR 1.0, PTT 38.1. A pH of 7.24, pCO2 of 71, pO2 of 68 that is on BiPAP. Sodium 137, potassium 4, chloride 101, CO2 o f 24, BUN 15, creatinine 0.9, glucose 113. Prolactin 21.28. The chest x-ray demonstrates normal size heart, clear diaphragms. No obvious infiltrates. PLAN: This patient presents with some type of seizure disorder and is gradually become more obtunded as the day goes, the thinking as he may be postictal, but I am not sure that we are dealing with ove rt sepsis. Head CT, etc. was unrevealing. I am concerned about his airway and risk for aspiration. I feel like he could already be infected. RECOMMENDATIONS: 1. I would recommend culturing the patient starting broad spectrum IV antibiotics. 2. Endotracheal intubation with mechanical ventilation. 3. Update family when they become available.
--- NOTE | 2018-02-09 19:54 | HP ---
The patient does not have a primary care physician. CHIEF COMPLAINT: Left arm shaking. HISTORY OF PRESENT ILLNESS: Mr. Szymanski is a pleasant 62-year-old gentleman that has a history of recent stroke. He was recently admitted to our facility about a month ago where he was admitted with left arm and leg weakness as well as slurred speech. He was also noted to have a submental mass. At that time, he was evaluated and diagnosed with an acute right posterior frontoparietal region infarct. He was also noted to have bilateral high grade carotid artery stenosis. During that hospital stay, he underwent a right carotid endarterectomy. The submental mass was found to be a squamous cell carcinoma by biopsy. He was treated and the plan was for him to get outpatient treatment for the squamous cell carcinoma of the submental area and also to follow up at a later date for a left carotid endarterectomy. However, he developed twitching in the left arm, when he was going to use the restroom as well as some twitching in the face. He was brought to the hospital by family and was evaluated in the ER. A CT angiogram of the head and neck was performed and there were no significant changes from the prior. The ER physician contacted Neurology and it was thought that the patient may be having a seizure. The patient is actually in the process of being loaded with Keppra and is being admitted for further evaluation and treatment. The patient is awake and alert. He is able to follow some commands. He is twitching in the arm and the left side of the face and otherwise were not able to obtain any other history. REVIEW OF SYSTEMS: The review of systems is unobtainable due to the patient's current status of being on BiPAP and unable to actively cooperate consistently. PAST MEDICAL HISTORY: Significant for recent cerebrovascular accident in the right frontoparietal area, submental squamous cell carcinoma as well as hypertension. PAST SURGICAL HISTORY: Significant for right carotid endarterectomy. ALLERGIES: No known drug allergies. SOCIAL HISTORY: He is a former smoker. He only quit recently. He has at least a [id number] history of smoking, previous heavy alcohol use. He has not drunk since October. He is and has several children and his children would be the initial surrogate decision maker, his mother if they are not available. He would like to be a FULL CODE at this time, but does not want to be on a ventilator for a prolonged period of time. FAMILY HISTORY: Significant for lung cancer in his mother, father had cancer as well due to asbestosis. MEDICATIONS: Nicotine patch and also metoprolol 25 mg twice a day, atorvastatin 20 mg daily, Ventolin inhaler, and aspirin 325 mg daily. PHYSICAL EXAMINATION: GENERAL: He is awake, alert, on BiPAP. He is currently having some twitching. VITAL SIGNS: Blood pressure is ranging from 150s-200 systolic, heart rate is in the 130s, respiratory rate of 20, temperature is 98. HEENT: His pupils are equal, round, and reactive. Extraocular muscles are intact. His sclerae are anicteric. Throat: There is no erythema, no exudates. NECK: No adenopathy, no bruits. LUNGS: He has got some bilateral wheezing as well as some rhonchi, but there are no rales. CARDIOVASCULAR: Heart rate is tachycardic and regular. There is some mild grade 1/2 systolic murmur and there is no gallop, no clicks or rubs. ABDOMEN: Soft, nontender, nondistended. Positive for bowel sounds. There is no rebound, no guarding, no organomegaly. EXTREMITIES: He has got 1-2+ edema. NEUROLOGICALLY: He has got weakness in the left upper and lower extremity. He has got some focal twitching in the face and left upper extremity. SKIN/INTEGUMENT: He has some hyperpigmentation as well as some skin lesions. good skin turgor IMAGING: CT angiogram did not show any significant. EKG- sinus tachycardia- and by my reading LABORATORY RESULTS: White blood cell count was 19.6, hemoglobin 12.9, hematocrit is 38, platelet count is 434. INR is 1.0. Sodium is 137, potassium 4.0, chloride is 101, CO2 is 24, BUN of 15, creatinine 0.94, glucose is 113. Urinalysis is negative and ABG the pH is 7.26, pCO2 of 70.2, pO2 is 59.5. ASSESSMENT AND PLAN: This is a pleasant 62-year-old gentleman who presented to the emergency room with facial twitching as well as twitching in the left upper extremity. CTA of the brain was negative as well as CT scan of the brain was negative for acute stroke or any focal stenosis which is new. Concerning is the hypercapnia. 1. Seizures. He will be admitted to the ICU. We will continue him on BiPAP; however, should he become obtunded or if his CO2 does not improve, then he will need to be intubated to protect his airway. This was discussed with the noise tester employee relations consultant. We will also continue Keppra and place him on Ativan as needed and we will give him a dose of Ativan now since he continues to have some seizure-like activity until the Keppra can take effect. 2. Acute respiratory failure- continue BiPAP and will repeat an ABG soon 2. Hypertensive urgency. He has been already started on a Cardene drip. We will titrate this and keep his systolic blood pressure 160-170 in the event this represents an acute stroke. 3. Recent CVA- we will continue aspirin rectally and restart his statin once he is able to tolerate this. 4. History of squamous cell carcinoma. Treatment of this will need to be deferred until once he is more stable. The patient will be placed on deep venous thrombosis and gastrointestinal prophylaxis and the patient's condition is guarded given the recent stroke and what appears to be a fairly severe seizure activity and the recently diagnosed cancer. [facility]
[2018-02-09] MEDS: Propofol 1,000 MG/100 ML VIAL IV PRN (20:00)
[2018-02-09 20:17] LABS: CO2 Tension 50.2 mmHg (35.0-45.0); pH, Arterial 7.36 (7.35-7.45)
[2018-02-09 20:18] LABS: Actual Bicarbonate (HCO3a) 27.7 mEq/L (22-28); Base Excess (BEa) 1.5 mEq/L (-2.0 to +3.0); Carboxyhemoglobin (COHb) 0.4 gm% (0.0-3.0); Hemoglobin (Hb) 12.9 g/dL (14.0-18.0); O2 Tension (PaO2) 55.2 mmHg (> 80.0); Potassium - ABG Lab 4.3 mmol/L (3.70-5.30)
[2018-02-09 20:19] LABS: Calcium, Ionized 1.14 mmol/L (1.12-1.30); Puncture Site RBRACH
--- NOTE | 2018-02-09 20:49 | OP ---
DATE OF SERVICE: 02/09/2018 PROCEDURE #1: Endotracheal intubation. PREOPERATIVE DIAGNOSIS: Respiratory failure. POSTOPERATIVE DIAGNOSIS: Acute respiratory failure with retained secretions. ANESTHESIA: None. DESCRIPTION OF PROCEDURE: The procedure was done on an emergent basis because the patient was having difficulty ventilating on BiPAP. Using a GlideScope for visualization, the patient was intubated wi th 7.5 endotracheal tube without difficulty. The patient had copious secretions present in his trach ea, which came out during the intubation. The placement tube was confirmed by auscultation and by br onchoscopy. PROCEDURE #2: Bronchoscopy. PREOPERATIVE DIAGNOSIS: Retained secretions. POSTOPERATIVE DIAGNOSIS: Retained secretions. ANESTHESIA: None. DESCRIPTION OF PROCEDURE: The patient was placed on mechanical ventilation. An adaptor was placed o n the end of his endotracheal tube. On an emergent basis, bronchoscope was placed down his airway to clear his trachea of secretions. There was copious mucus present in the trachea and both main stem bronchi. This was lavaged with saline, aspirated until both airways were cleared to completion. The patient tolerated this procedure well.
[2018-02-10] MEDS: Piperacillin/Tazobactam 3.375 GM in Sodium Chloride 0.9% 100 ML IVPB SCH ×5 (01:00→23:34)
[2018-02-10] MEDS: Famotidine/PF 20 mg/2ml Vial SLOW IVP SCH ×3 (02:48→21:28)
[2018-02-10] MEDS: Lorazepam 2 MG/ML VIAL SLOW IVP PRN ×2 (03:08→04:23)
[2018-02-10 05:58] LABS: Anion Gap 17 mmol/L (10-20); BUN (Urea Nitrogen) 15 mg/dL (8.4-25.7); Calc. Creatinine Clearance 93 mL/min (70-130); Calcium 8.9 mg/dL (7.8-10.44); Carbon Dioxide 24 mmol/L (23-31); Chloride 101 mmol/L (98-107); Estimated GFR-MDRD Greater than 90; Glucose 135 mg/dL (80-115); Potassium 4.1 mmol/L (3.5-5.1); Sodium 138 mmol/L (136-145)
[2018-02-10 06:21] LABS: Band 25 % (5-11); Hemoglobin 11.6 g/dL (14.0-18.0); Lymphocytes 3 % (21-51); MDiff Complete? YES; Mean Corpuscular HGB CONC 31.1 g/dL (32.0-36.0); Mean Corpuscular Hemoglobin 29.4 pg (27.0-31.0); Mean Corpuscular Volume 94.4 fL (78.0-98.0); Mean Platelet Volume 7.4 fL (7.4-10.4); Monocytes 2 % (0-10); Neutrophil 70 % (42-75); PLT Morphology Comment Appears Increased; Platelet Count 416 thou/uL (130-400); Red Blood Cell (RBC) Count 3.94 mill/uL (4.70-6.10); White Blood Cell (WBC) Count 26.4 thou/uL (4.8-10.8)
[2018-02-10] MEDS: Sodium Chloride 0.9% 1,000 ML IV SCH ×2 (06:25→21:29)
[2018-02-10 06:30] LABS: Actual Bicarbonate (HCO3a) 28.3 mEq/L (22-28); Base Excess (BEa) 5.2 mEq/L (-2.0 to +3.0); CO2 Tension 36.2 mmHg (35.0-45.0); Carboxyhemoglobin (COHb) 0.5 gm% (0.0-3.0); Hemoglobin (Hb) 11.9 g/dL (14.0-18.0); O2 Tension (PaO2) 127.9 mmHg (> 80.0); pH, Arterial 7.51 (7.35-7.45)
[2018-02-10 06:31] LABS: Potassium - ABG Lab 3.9 mmol/L (3.70-5.30); Puncture Site RR
--- NOTE | 2018-02-10 08:41 | RAD ---
CHEST 1 VIEW: Date: 02/10/18 HISTORY: 62-year-old male with history of respiratory failure. FINDINGS: NG tube and endotracheal tubes are in position. Monitor leads overlie the chest. No confluent pneumon ia, overt edema, or pleural effusion. IMPRESSION: Life support tubes in place. Minimal stable increased markings bilaterally. No significant new proces s. POS: [facility]
[2018-02-10] MEDS: Enoxaparin Sodium 40 MG/0.4 ML SYRINGE SC SCH (08:47)
[2018-02-10] MEDS: Aspirin 300 MG Suppository PR SCH ×2 (08:47→11:44)
--- NOTE | 2018-02-10 09:09 | PDOC.PN ---
- Subjective Encounter Start Date: 02/10/18 Encounter Start Time: 09:07 Mr. Szymanski was seen today in follow-up of new onset seizures. He was intubated last night. He is sedated. He does not appear to be actively seizing. - Objective Resuscitation Status: Resuscitation Status FULL:Full Resuscitation MAR Reviewed: Yes Vital Signs & Weight: Vital Signs (12 hours) Temp Pulse Resp BP Pulse Ox 02/10/18 08:00 20 02/10/18 07:15 106 H 115/55 L 02/10/18 07:10 101 F H 105 H 25 H 97 02/10/18 04:00 99.4 F 02/10/18 02:41 115 H 02/10/18 02:00 22 H 02/10/18 00:00 20 02/09/18 22:08 99 02/09/18 22:00 99.0 F 22 H Weight Weight 164 lb 7.437 oz Most Recent Monitor Data Heart Rate from ECG 107 NIBP 137/59 NIBP BP-Mean 73 Respiration from ECG 14 SpO2 100 I&O: 02/09/18 02/10/18 02/11/18 06:59 06:59 06:59 Intake Total 856.5 0 Output Total 1170 205 Balance -313.5 -205 Result Diagrams: 02/10/18 05:02 02/10/18 05:02 Additional Labs: Accuchecks 02/09/18 12:39 POC Glucose 102 Phys Exam - Physical Examination HEENT: PERRLA, sclera anicteric Respiratory: no wheezing, no rales + rhonchi bilaterally, and equal breath sounds Cardiovascular: RRR, no significant murmur, no rub tachycardic Gastrointestinal: soft, no distention, positive bowel sounds no organomegaly Musculoskeletal: edema present trace pedal edema no seizures or muscle twitching Dx/Plan (1) Acute hypercapnic respiratory failure Code(s): J96.02 - ACUTE RESPIRATORY FAILURE WITH HYPERCAPNIA Status: Acute (2) New onset seizure Code(s): R56.9 - UNSPECIFIED CONVULSIONS Status: Acute (3) Hypertensive urgency Code(s): I16.0 - HYPERTENSIVE URGENCY Status: Acute (4) Squamous cell carcinoma of mandible Code(s): C41.1 - MALIGNANT NEOPLASM OF MANDIBLE Status: Chronic (5) CVA (cerebral vascular accident) Code(s): I63.9 - CEREBRAL INFARCTION, UNSPECIFIED Status: Chronic Qualifiers: Precerebral and cerebral artery: posterior cerebral artery Laterality of affected vessel: right Comment: on aspirin and statin, right post frontoparietal area cva - Plan * Seizure New onset- Likely from the previous stroke- continue IV Keppra and Dilantin * Acute hypercapnic respiratory failure- he has been intubated, and started on empiric antibiotics. He is reported to have had thick secretions in the upper respiratory tract and into the trachea- continue as per PCCM * Hypertensive Urgency- resolved- he was taken off Cardene drip shortly after arrival to the ICU- will continue PRN medications as needed * CVA- continue aspirin via the OG tube * Await EEG, and further recommendations from Neurology * Will need nutrition via OG if he remains intubated.
--- NOTE | 2018-02-10 09:15 | PRG ---
DATE OF SERVICE: 02/10/2018 A 35 minutes critical care time. SUBJECTIVE: The patient remains intubated on mechanical ventilation. Neurologically, he will postur e to deep painful stimulation, but will not follow commands. He does yawn and he does have hiccups. OBJECTIVE: VITAL SIGNS: Temperature 101, pulse 107, blood pressure 134/63. A 24-hour intake 856, output 1170. HEENT: Pupils 2 mm and reactive, sclerae are anicteric. Oropharynx clear. He has a cancerous lesio n beneath his chin. CARDIAC: S1, S2, slightly tachycardic. LUNGS: Fairly clear. ABDOMEN: Soft, nontender. EXTREMITIES: No edema. LABORATORY DATA: ABG: PH 7.51, pCO2 36, pO2 127 on SIMV rate 20, tidal volume 500, PEEP 5, pressure support 10, FiO2 50%, white blood cell count 26.4, hematocrit 37.2, platelet count 416. Sodium 130, potassium 4.1, chloride 101, CO2 24, BUN 15, creatinine 0.8, glucose 135. ASSESSMENT: 1. Aspiration pneumonia. 2. Seizure. 3. Acute respiratory failure requiring mechanical ventilation. 4. Squamous cell carcinoma beneath his chin. 5. Status post recent right endarterectomy. PLAN: Due to the patient's continued loss of consciousness, he is not safe for extubation. We will continue with supportive care. He is on broad spectrum IV antibiotics. I have discussed with family regarding his disposition. They do not want a long-term intubation, because it is the family's wish es. I will go ahead and start tube feeds. He will be reevaluated tomorrow.
[2018-02-10] MEDS: Aspirin 325 MG TAB ONE ×2 (10:03→10:06)
[2018-02-10] MEDS: Propofol 1,000 MG/100 ML VIAL IV PRN (11:42)
[2018-02-10] MEDS: levETIRAcetam In NaCl (Iso-Os) 1,000 MG in Premix Bag 1 BAG IVPB SCH (13:57)
[2018-02-11] MEDS: levETIRAcetam In NaCl (Iso-Os) 1,000 MG in Premix Bag 1 BAG IVPB SCH ×2 (01:38→14:25)
[2018-02-11 05:43] LABS: Anion Gap 15 mmol/L (10-20); BUN (Urea Nitrogen) 13 mg/dL (8.4-25.7); Calc. Creatinine Clearance 102 mL/min (70-130); Calcium 8.9 mg/dL (7.8-10.44); Carbon Dioxide 24 mmol/L (23-31); Chloride 102 mmol/L (98-107); Estimated GFR-MDRD Greater than 90; Glucose 128 mg/dL (80-115); Potassium 3.7 mmol/L (3.5-5.1); Sodium 137 mmol/L (136-145)
[2018-02-11] MEDS: Acetaminophen 1,000 MG in Premix Bag 1 BAG IVPB PRN ×3 (06:06→23:59)
[2018-02-11] MEDS: Piperacillin/Tazobactam 3.375 GM in Sodium Chloride 0.9% 100 ML IVPB SCH ×4 (06:06→23:13)
[2018-02-11 06:09] LABS: Band 2 % (5-11); Hemoglobin 11.3 g/dL (14.0-18.0); Hypochromia SLIGHT = 6-15 cells (100X) (0-5/hpf); Lymphocytes 9 % (21-51); MDiff Complete? YES; Mean Corpuscular HGB CONC 33.8 g/dL (32.0-36.0); Mean Corpuscular Volume 94.5 fL (78.0-98.0); Mean Platelet Volume 7.4 fL (7.4-10.4); Monocytes 7 % (0-10); Neutrophil 82 % (42-75); PLT Morphology Comment Appears Increased; Platelet Count 405 thou/uL (130-400); RBC Distribution Width 11.9 % (11.5-14.5); Red Blood Cell (RBC) Count 3.52 mill/uL (4.70-6.10); White Blood Cell (WBC) Count 20.7 thou/uL (4.8-10.8)
[2018-02-11] MEDS: Famotidine/PF 20 mg/2ml Vial SLOW IVP SCH ×2 (10:38→21:10)
[2018-02-11] MEDS: Aspirin 325 MG TAB PER TUBE SCH (10:38)
[2018-02-11] MEDS: Enoxaparin Sodium 40 MG/0.4 ML SYRINGE SC SCH (10:38)
--- NOTE | 2018-02-11 11:23 | PRG ---
DATE OF SERVICE: 02/11/2018 Thirty minutes critical care time. SUBJECTIVE: Mr. Szymanski is actually waking up and following some commands today. Does not appear to be having seizures at this point. OBJECTIVE: VITAL SIGNS: Temperature is 97, pulse 97, blood pressure 142/66, O2 sat 100%, respiratory rate 12. HEENT: Pupils reactive, sclerae icteric. Oropharynx: He has a submandibular cancerous lesion prese nt. NECK: No adenopathy or JVD. LUNGS: Clear anteriorly. CARDIOVASCULAR: S1 and S2, regular. ABDOMEN: Soft, nontender. EXTREMITIES: No edema. LABORATORY DATA: Sodium 131, potassium 3.5, hemoglobin 11, pH 7.45, pCO2 of 42, pO2 of 69. He is on SIMV rate 14, tidal volume 500, PEEP 5, pressure support 10, FiO2 of 40%. ASSESSMENT: 1. Status epilepticus - appears to be improving. 2. Acute respiratory failure related to aspiration. 3. Probable underlying chronic obstructive pulmonary disease. 4. Probable head and neck cancer. PLAN: He is scheduled to go to MRI today. We need to begin slowly weaning off his propofol and hope for extubation in the next 24-48 hours.
[2018-02-11 11:32] LABS: Actual Bicarbonate (HCO3a) 28.9 mEq/L (22-28); Base Excess (BEa) 4.5 mEq/L (-2.0 to +3.0); CO2 Tension 42.3 mmHg (35.0-45.0); O2 Tension (PaO2) 99.9 mmHg (> 80.0); pH, Arterial 7.45 (7.35-7.45)
[2018-02-11 11:33] LABS: ALV-art Gradient 130.425 (0-20); Calcium, Ionized 1.13 mmol/L (1.12-1.30); Carboxyhemoglobin (COHb) 0.7 gm% (0.0-3.0); Potassium - ABG Lab 3.54 mmol/L (3.70-5.30); Puncture Site RR
[2018-02-11] MEDS: Sodium Chloride 0.9% 1,000 ML IV SCH ×2 (12:35→23:12)
[2018-02-11] MEDS: Lorazepam 2 MG/ML VIAL SLOW IVP PRN ×2 (12:42→21:10)
--- NOTE | 2018-02-11 12:53 | PRG ---
DATE OF SERVICE: 02/10/2018 SUBJECTIVE: Mr. Szymanski is a 62-year-old male with a history of right frontoparietal stroke, presented with left arm and face twitching. He was seen by Dr. Shirley Doe over the weekend, who had given the patient Keppra and added Dilantin. The patient was also placed on Diprivan. Since being taken off Diprivan he was noted to have twitching in his left side of the face, for which I am being asked for further evaluation. PHYSICAL EXAMINATION: VITAL SIGNS: Blood pressure of 126/63, pulse of 108, temperature of 99.9, respirations of 14, intubated male in no apparent distress. RESPIRATORY: Clear to auscultation bilaterally. CARDIOVASCULAR: Regular rate and rhythm. NEUROLOGIC: Mental status: The patient is intubated and nonsedated. He does not respond to verbal or noxious stimuli. He has focal motor twitching of the left side of the face. Pupils are 3 mm and reactive. He has a positive corneal reflex . Motor exam showed decreased tone on the right upper and lower extremities. He has increased tone on the left upper and left lower extremities. He withdraws to pain on the right upper and right lower extremities, but does not withdraw to pain on the left side. LABORATORY DATA: Reviewed, which included CBC, BMP, urinalysis, which is significant for WBC of 26.4, hemoglobin 11.6, hematocrit of 37.2, platelet count of 416, otherwise unremarkable. IMAGING STUDIES: CT head without contrast done on yesterday was reviewed, which showed prior right posterior frontoparietal ischemic infarct. IMPRESSION: 1. Right posterior frontoparietal ischemic infarct. 2. 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 ASSESSMENT AND PLAN: Mr. Szymanski is a 62-year-old male, who presented with the focal motor seizures involving the left side of the face. This is likely originating from his prior right frontoparietal ischemic infarct. At this time , I would recommend loading him on Keppra 1000 mg now dose, followed by 1000 mg b.i.d. I have reviewed his EEG, which was ongoing during my evaluation and it showed left parietotemporal region, spike and wave discharges followed by suppression. If his face twitching stops, then I would continue with Keppra at the same dose. If his twitching continues, then I may increase the dose of the Keppra to 1500 mg b.i.d. and add Dilantin 100 mg 3 times a day. I will continue to follow this patient and provide further recommendations as needed. Thank you for consultation. [facility]
--- NOTE | 2018-02-11 14:31 | PDOC.PN ---
- Subjective Encounter Start Date: 02/11/18 Encounter Start Time: 14:29 Mr. Szymanski was seen today in follow-up of new onset seizure. He is intubated , and just returning from MRI. His sedation has been reduced. I did not notice any seizure like activity. - Objective Resuscitation Status: Resuscitation Status FULL:Full Resuscitation MAR Reviewed: Yes Vital Signs & Weight: Vital Signs (12 hours) Temp Pulse Resp BP Pulse Ox 02/11/18 12:29 94 117/55 L 02/11/18 12:00 101.1 F H 14 02/11/18 10:11 96 121/62 02/11/18 10:00 19 02/11/18 08:00 99.9 F H 97 14 100 02/11/18 07:03 96 136/62 02/11/18 04:00 100.3 F H 16 Weight Admit Weight 164 lb Weight 164 lb 7.437 oz Most Recent Monitor Data Heart Rate from ECG 105 NIBP 132/70 NIBP BP-Mean 90 Respiration from ECG 16 SpO2 100 I&O: 02/10/18 02/11/18 02/12/18 06:59 06:59 06:59 Intake Total 856.5 1085 20 Output Total 1170 1285 297 Balance -313.5 -200 -277 Result Diagrams: 02/11/18 05:08 02/11/18 05:08 Phys Exam - Physical Examination HEENT: PERRLA Respiratory: no wheezing, no rales, no rhonchi, clear to auscultation bilateral Cardiovascular: RRR, no rub 2/6 systolic murmur, no gallop Gastrointestinal: soft, non-tender, no distention, positive bowel sounds Musculoskeletal: no edema Dx/Plan (1) Acute hypercapnic respiratory failure Code(s): J96.02 - ACUTE RESPIRATORY FAILURE WITH HYPERCAPNIA Status: Acute (2) New onset seizure Code(s): R56.9 - UNSPECIFIED CONVULSIONS Status: Acute (3) Hypertensive urgency Code(s): I16.0 - HYPERTENSIVE URGENCY Status: Acute (4) Squamous cell carcinoma of mandible Code(s): C41.1 - MALIGNANT NEOPLASM OF MANDIBLE Status: Chronic (5) CVA (cerebral vascular accident) Code(s): I63.9 - CEREBRAL INFARCTION, UNSPECIFIED Status: Chronic Qualifiers: Precerebral and cerebral artery: posterior cerebral artery Laterality of affected vessel: right Comment: on aspirin and statin, right post frontoparietal area cva - Plan * New Onset seizure- Continue Keppra . Await MRI results * Acute hypercapnic respiratory failure- suspected aspiration- continue Zosyn * Aspiration - as above continue Zosyn * HTN- blood pressure is stable- can continue to hold Metoprolol- re-start if BP becomes elevated * Recent right fronto-parietal CVA- stable- continue aspirin and re-start Lipitor .
--- NOTE | 2018-02-11 14:56 | MRI ---
BRAIN MRI WITH AND WITHOUT CONTRAST: HISTORY: Previous strokes. Left-sided deficit. COMPARISON: 01/29/2018 TECHNIQUE: A brain MRI is performed with and without intravenous Gadolinium administration. Multisequential, mu ltiplanar imaging is performed. FINDINGS: No hemorrhage on the axial gradient echo sequence. Age appropriate atrophy. Chronic small vessel is chemic changes of the white matter identified. Stable appearance of the ventricular system. There i s intimal development of FLAIR hyperintensity involving the medial right temporal lobe. There is ass ociated restricted diffusion. Infarct is favored. Mucosal thickening of the sinuses is noted. There is partial opacification of the bilateral mastoid air cells. There appears to be cortical enhancement involving the right frontal and parietal lobe, near the vert ex, corresponding to a recent infarct. IMPRESSION: 1. Acute infarct involving the medial right temporal lobe. 2. Enhancement involving the cortex of the right frontal parietal region, corresponding to an area o f recent infarct. Follow-up imaging in two months is recommended to ensure expected resolution of en hancement. POS: [facility]
[2018-02-11] MEDS: Atorvastatin Calcium 20 MG TAB PER TUBE SCH (21:10)
[2018-02-12] MEDS: levETIRAcetam In NaCl (Iso-Os) 1,000 MG in Premix Bag 1 BAG IVPB SCH (01:35)
[2018-02-12] MEDS: Piperacillin/Tazobactam 3.375 GM in Sodium Chloride 0.9% 100 ML IVPB SCH ×4 (05:01→23:37)
[2018-02-12 05:28] LABS: #Basophils 0.1 thou/uL (0.0-0.2); #Eosinphils 0.2 thou/uL (0.0-0.7); #Lymphocytes 2.5 thou/uL (1.20-3.40); #Monocytes 1.1 thou/uL (0.11-0.59); #Neutrophils 14.5 thou/uL (1.40-6.50); %Basophils 0.3 % (0.0-1.0); %Eosinophils 1.3 % (0.0-10.0); %Lymphocytes 13.3 % (21.0-51.0); %Monocytes 6.2 % (0.0-10.0); %Neutrophils 78.9 % (42.0-75.0); Hemoglobin 10.4 g/dL (14.0-18.0); Mean Corpuscular HGB CONC 33.6 g/dL (32.0-36.0); Mean Corpuscular Volume 95.2 fL (78.0-98.0); Mean Platelet Volume 7.2 fL (7.4-10.4); Platelet Count 395 thou/uL (130-400); RBC Distribution Width 11.9 % (11.5-14.5); Red Blood Cell (RBC) Count 3.25 mill/uL (4.70-6.10); White Blood Cell (WBC) Count 18.4 thou/uL (4.8-10.8)
[2018-02-12 05:48] LABS: Anion Gap 13 mmol/L (10-20); BUN (Urea Nitrogen) 11 mg/dL (8.4-25.7); Calc. Creatinine Clearance 105 mL/min (70-130); Calcium 8.5 mg/dL (7.8-10.44); Carbon Dioxide 25 mmol/L (23-31); Chloride 104 mmol/L (98-107); Estimated GFR-MDRD Greater than 90; Glucose 102 mg/dL (80-115); Potassium 3.5 mmol/L (3.5-5.1); Sodium 138 mmol/L (136-145)
[2018-02-12 07:16] LABS: Actual Bicarbonate (HCO3a) 27.5 mEq/L (22-28); Base Excess (BEa) 3.2 mEq/L (-2.0 to +3.0); CO2 Tension 41.1 mmHg (35.0-45.0); Calcium, Ionized 1.14 mmol/L (1.12-1.30); Carboxyhemoglobin (COHb) 1.2 gm% (0.0-3.0); Hemoglobin (Hb) 11.2 g/dL (14.0-18.0); O2 Tension (PaO2) 79.6 mmHg (> 80.0); Potassium - ABG Lab 3.28 mmol/L (3.70-5.30); pH, Arterial 7.44 (7.35-7.45)
[2018-02-12 07:17] LABS: ALV-art Gradient 154.225 (0-20); Puncture Site RR
--- NOTE | 2018-02-12 07:53 | PRG ---
DATE OF SERVICE: 02/11/2018 SUBJECTIVE: Mr. Szymanski is a pleasant 62-year-old male who has been having focal motor seizures. According to the nurse after starting Keppra, there is some decrease in activity of left facial motor twitching. However, he still continues to have episodes of facial motor twitching and on occasions there is associated left upper extremity twitching. He did have an MRI brain done today which showed acute infarct involving the medial right temporal lobe. There was enhancement involving the cortex of the right frontoparietal region corresponding to the area of recent infarction. PHYSICAL EXAMINATION: VITAL SIGNS: Blood pressure of 131/59, pulse of 93, temperature of 100.1, respirations of 13, O2 sats of 100% on mechanical ventilation. GENERAL: Intubated, nonsedated -[place] male, in no apparent distress. RESPIRATORY: Clear to auscultation bilaterally. CARDIOVASCULAR: Regular rate and rhythm. NEUROLOGIC: Essentially unchanged when compared to yesterday. He did have cessation of the left facial twitching when he was asleep, but when he was aroused facial twitching restarted. IMAGING STUDIES: Brain MRI with and without contrast was reviewed. Findings as noted as dictated above in this dictation. IMPRESSION: 1. Acute right medial temporal lobe infarct. 2. 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 Mr. Szymanski is a pleasant 62-year-old male who presented with left facial motor twitching, which has improved some since starting on Keppra, although he continues to have facial twitching. For this reason, I will increase the dose of Keppra 1500 mg twice daily and also start him on Dilantin 100 mg 3 times a day. I will check Dilantin level in the morning. I will recheck the EEG in the morning to evaluate for the spike and wave discharges noted in the previous EEG. Continue supportive care. Continue current medical management. Thank you for consultation. NADINE
[2018-02-12] MEDS: Famotidine 20 MG TAB PER TUBE SCH ×2 (09:52→21:49)
[2018-02-12] MEDS: Enoxaparin Sodium 40 MG/0.4 ML SYRINGE SC SCH (09:52)
[2018-02-12] MEDS: Aspirin 325 MG TAB PER TUBE SCH (09:52)
--- NOTE | 2018-02-12 10:55 | PRG ---
DATE OF SERVICE: 02/12/2018 Thirty-five minutes critical care time. The patient remains intubated in the CCU. He is actually now waking up and following commands. He c an move his right side very well. I cannot get much movement out of his left side. MRI apparently s howed a frontoparietal area stroke. PHYSICAL EXAMINATION: VITAL SIGNS: Temperature is 99.1 with a T-max of 101.0, pulse 68, blood pressure 124/58, O2 sat 100% . Total intake 4022, output 1464. HEENT: Unremarkable. NECK: No adenopathy or JVD. He has the area of cancer beneath his chin. LUNGS: Clear anteriorly. CARDIOVASCULAR: S1 and S2 regular. ABDOMEN: Soft, nontender. EXTREMITIES: No edema. LABORATORY DATA: White blood cell count 18.4, hematocrit 30.9, platelet count 395, pH 7.44, pCO2 41, pO2 79 on SIMV rate 14, tidal volume 500, PEEP 5, pressure support 10, FiO2 40%. Sodium 138, potass ium 3.5, chloride 104, CO2 25, BUN 11, creatinine 0.7, glucose 102. His micro culture from 02/09/2018 grew out alpha hemolytic strep on bronchoscopy. ASSESSMENT: 1. Status epilepticus - now with resolving seizures. 2. Acute respiratory failure related to aspiration. 3. Aspiration pneumonia. 4. Underlying chronic obstructive pulmonary disease. 5. Head and neck cancer. PLAN: I am going to put him on spontaneous breathing trials, but I want to keep him intubated until tomorrow. He will continue the IV antibiotics. He will continue tube feeds. I will go ahead and st op his IV fluids since he appears to be getting somewhat fluid overloaded. The above encompassed 35 minutes critical care time.
--- NOTE | 2018-02-12 11:16 | PDOC.PN ---
- Subjective Encounter Start Date: 02/12/18 Encounter Start Time: 11:14 Mr. Szymanski was see today in follow-up of new onset seizure with respiratory failure. He is intubated, and awake, and follows commands. - Objective Resuscitation Status: Resuscitation Status FULL:Full Resuscitation MAR Reviewed: Yes Vital Signs & Weight: Vital Signs (12 hours) Temp Pulse Resp BP Pulse Ox 02/12/18 10:28 94 139/53 L 02/12/18 10:00 15 02/12/18 08:00 99.0 F 19 100 02/12/18 07:05 92 138/67 02/12/18 06:00 14 02/12/18 04:00 99.1 F 14 02/12/18 02:08 99 158/68 H 02/12/18 02:00 14 02/12/18 00:11 107 H 167/73 H 02/12/18 00:00 101.0 F H 25 H Weight Admit Weight 164 lb Weight 167 lb 5.294 oz Most Recent Monitor Data Heart Rate from ECG 97 NIBP 137/66 NIBP BP-Mean 81 Respiration from ECG 11 SpO2 100 I&O: 02/11/18 02/12/18 02/13/18 06:59 06:59 06:59 Intake Total 1085 4022.6 120 Output Total 1285 1464 290 Balance -200 2558.6 -170 Result Diagrams: 02/12/18 05:04 02/12/18 05:04 Phys Exam - Physical Examination HEENT: PERRLA Respiratory: no wheezing, no rales, no rhonchi + coarse breath sounds Cardiovascular: RRR, no significant murmur, no rub Gastrointestinal: soft, non-tender, no distention, positive bowel sounds Musculoskeletal: edema present Left sided weakness no facial or arm twitching Dx/Plan (1) Acute hypercapnic respiratory failure Code(s): J96.02 - ACUTE RESPIRATORY FAILURE WITH HYPERCAPNIA Status: Acute (2) New onset seizure Code(s): R56.9 - UNSPECIFIED CONVULSIONS Status: Acute (3) Hypertensive urgency Code(s): I16.0 - HYPERTENSIVE URGENCY Status: Acute (4) 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 new CVA * Acute respiratory failure- improving- he is currently on a CPAP trial- continue Zosyn for aspiration * HTN- blood pressure is stable * Recent CVA- continue aspirin and lipitor .
[2018-02-12] MEDS: levETIRAcetam In NaCl (Iso-Os) 1,500 MG in Premix Bag 1 BAG IVPB SCH (13:45)
[2018-02-12 14:55] VITALS: BMI 24.7
[2018-02-12] MEDS: Fosphenytoin Sodium 100 MG in Sodium Chloride 0.9% 50 ML IVPB SCH ×2 (14:59→21:49)
[2018-02-12] MEDS: Atorvastatin Calcium 20 MG TAB PER TUBE SCH (21:49)
[2018-02-13] MEDS: levETIRAcetam In NaCl (Iso-Os) 1,500 MG in Premix Bag 1 BAG IVPB SCH ×2 (01:09→13:38)
[2018-02-13 05:20] LABS: #Basophils 0.1 thou/uL (0.0-0.2); #Eosinphils 0.5 thou/uL (0.0-0.7); #Monocytes 1.2 thou/uL (0.11-0.59); #Neutrophils 14.4 thou/uL (1.40-6.50); %Basophils 0.5 % (0.0-1.0); %Lymphocytes 10.8 % (21.0-51.0); %Monocytes 6.8 % (0.0-10.0); Hemoglobin 10.5 g/dL (14.0-18.0); Mean Corpuscular HGB CONC 33.3 g/dL (32.0-36.0); Mean Corpuscular Hemoglobin 31.5 pg (27.0-31.0); Mean Corpuscular Volume 94.6 fL (78.0-98.0); Mean Platelet Volume 7.5 fL (7.4-10.4); Platelet Count 417 thou/uL (130-400); RBC Distribution Width 11.7 % (11.5-14.5); Red Blood Cell (RBC) Count 3.35 mill/uL (4.70-6.10); White Blood Cell (WBC) Count 18.3 thou/uL (4.8-10.8)
[2018-02-13 05:36] LABS: Anion Gap 14 mmol/L (10-20); BUN (Urea Nitrogen) 8 mg/dL (8.4-25.7); Calc. Creatinine Clearance 123 mL/min (70-130); Calcium 8.7 mg/dL (7.8-10.44); Carbon Dioxide 24 mmol/L (23-31); Chloride 102 mmol/L (98-107); Estimated GFR-MDRD Greater than 90; Glucose 109 mg/dL (80-115); Potassium 3.5 mmol/L (3.5-5.1); Sodium 136 mmol/L (136-145)
[2018-02-13] MEDS: Piperacillin/Tazobactam 3.375 GM in Sodium Chloride 0.9% 100 ML IVPB SCH ×4 (05:36→23:34)
[2018-02-13 07:05] LABS: pH, Arterial 7.46 (7.35-7.45)
[2018-02-13 07:06] LABS: Actual Bicarbonate (HCO3a) 26.1 mEq/L (22-28); Base Excess (BEa) 2.2 mEq/L (-2.0 to +3.0); CO2 Tension 37.9 mmHg (35.0-45.0); Calcium, Ionized 1.16 mmol/L (1.12-1.30); Carboxyhemoglobin (COHb) 0.6 gm% (0.0-3.0); Hemoglobin (Hb) 11.8 g/dL (14.0-18.0); O2 Tension (PaO2) 111.4 mmHg (> 80.0); Potassium - ABG Lab 3.43 mmol/L (3.70-5.30)
[2018-02-13 07:07] LABS: ALV-art Gradient 126.425 (0-20); Puncture Site RRACH
[2018-02-13] MEDS ORDERED: DC Sedation Protocol FS ONE (08:33)
[2018-02-13] MEDS ORDERED: CCU Electrolyte Replacement 1 EACH FS ONE (08:35)
[2018-02-13] MEDS ORDERED: Potassium Phosphate 15 MMOL in Sodium Chloride 0.9% 250 ML 250 ML IV PRN (08:44)
[2018-02-13] MEDS ORDERED: Potassium Phosphate 9 MMOL in Sodium Chloride 0.9% 100 ML IVPB PRN (08:44)
[2018-02-13] MEDS ORDERED: Potassium Chloride 40 MEQ in Sodium Chloride 0.9% 250 ML 250 ML IVPB PRN (08:44)
[2018-02-13] MEDS ORDERED: Magnesium 2 GM/NS 0.9% 100 ML 2 GM in Premix Bag 1 BAG IVPB PRN (08:44)
[2018-02-13] MEDS ORDERED: Potassium Phosphate 12 MMOL in Sodium Chloride 0.9% 250 ML 250 ML IV PRN (08:44)
[2018-02-13] MEDS ORDERED: Magnesium Oxide 400 MG TAB PO PRN ×2 (08:44)
[2018-02-13] MEDS ORDERED: Potassium Chloride 40 MEQ in Premix Bag 1 BAG IVPB PRN (08:44)
[2018-02-13] MEDS ORDERED: Potassium Chloride 20 MEQ TAB PO PRN (08:44)
--- NOTE | 2018-02-13 08:52 | PRG ---
DATE OF SERVICE: 02/03/2018 Thirty-five minutes critical care time. The patient remains intubated on mechanical ventilation. He will wake up or follow commands with his right side. He is still hemiparetic on the left. PHYSICAL EXAMINATION: VITAL SIGNS: Pulse 87, blood pressure is 147/58, O2 sat 100%, respiratory rate 15. HEENT: Unremarkable except for the area of cancer beneath his chin. LUNGS: Clear. CARDIAC: S1 and S2 regular. ABDOMEN: Soft. EXTREMITIES: No edema. LABORATORY DATA: Sodium 136, potassium 3.5, chloride 102, CO2 24, BUN 8, creatinine 0.6, glucose 109 , pH 7.46, pCO2 37, PO2 111 on spontaneous breathing with PEEP 5, pressure support 10, FiO2 40%, whit e blood cell count 18.3, hematocrit 31.7, platelet count 417. ASSESSMENT: 1. Acute respiratory failure requiring mechanical ventilation. 2. Status post stroke. 3. Status epilepticus, which is resolved. 4. Aspiration pneumonia. 5. Underlying chronic obstructive pulmonary disease. 6. Head and neck cancer. PLAN: 1. Extubation and observe. The family understands that he does have a risk of failure from extubati on. 2. Ask Speech Therapy to see the patient to see if he can swallow. 3. Continue antiepileptic medications.
[2018-02-13] MEDS ORDERED: Scopolamine 1.5 mg/72 hour Patch TD SCH (09:00)
[2018-02-13] MEDS: Famotidine 20 MG TAB PER TUBE SCH ×2 (09:02→20:23)
[2018-02-13] MEDS: Fosphenytoin Sodium 100 MG in Sodium Chloride 0.9% 50 ML IVPB SCH (09:02)
[2018-02-13] MEDS: Enoxaparin Sodium 40 MG/0.4 ML SYRINGE SC SCH (09:02)
[2018-02-13] MEDS: Aspirin 325 MG TAB PER TUBE SCH (09:02)
--- NOTE | 2018-02-13 09:52 | PDOC.PN ---
- Subjective Encounter Start Date: 02/13/18 Encounter Start Time: 09:50 Mr. Szymanski was seen today in follow-up of new onset seizure. He has been extubated. He is awake and alert. He says he is breathing fine. He denies chest pain. - Objective Resuscitation Status: Resuscitation Status FULL:Full Resuscitation MAR Reviewed: Yes Vital Signs & Weight: Vital Signs (12 hours) Temp Pulse Resp BP Pulse Ox 02/13/18 08:34 96 19 100 02/13/18 07:00 99.6 F 02/13/18 06:53 84 140/59 L 02/13/18 06:00 16 02/13/18 04:00 99.8 F H 11 L 02/13/18 02:14 88 109/53 L 02/13/18 02:00 11 L 02/13/18 00:00 100.2 F H 14 02/12/18 22:06 96 159/68 H 02/12/18 22:00 17 Weight Admit Weight 164 lb Weight 168 lb 10.458 oz Most Recent Monitor Data Heart Rate from ECG 99 NIBP 143/57 NIBP BP-Mean 102 Respiration from ECG 23 SpO2 100 I&O: 02/12/18 02/13/18 02/14/18 06:59 06:59 06:59 Intake Total 4022.6 3386 Output Total 1464 1998 155 Balance 2558.6 1388 -155 Result Diagrams: 02/13/18 04:54 02/13/18 04:54 Phys Exam - Physical Examination HEENT: PERRLA Respiratory: no wheezing + Rhonchi bilaterally , decreased breath sounds at the bases Cardiovascular: RRR, no significant murmur, no rub no gallop Gastrointestinal: soft, non-tender, no distention, positive bowel sounds Musculoskeletal: no edema Left sided weakness Dx/Plan (1) Acute hypercapnic respiratory failure Code(s): J96.02 - ACUTE RESPIRATORY FAILURE WITH HYPERCAPNIA Status: Acute (2) New onset seizure Code(s): R56.9 - UNSPECIFIED CONVULSIONS Status: Acute (3) Hypertensive urgency Code(s): I16.0 - HYPERTENSIVE URGENCY Status: Resolved (4) 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 Continue Keppra and Dilantin * Acute respiratory failure- he has now been extubated, continue aggressive pulmonary care, and Zosyn for aspiration * HTN- blood pressure has improved- stable,. * Agree with continue Tube feeding, until he can be cleared by speech therapy *
[2018-02-13] MEDS: Nicotine 21 MG PATCH TOP SCH (17:11)
[2018-02-13] MEDS: Fosphenytoin Sodium 200 MG in Sodium Chloride 0.9% 50 ML IVPB SCH (20:22)
[2018-02-13] MEDS: Atorvastatin Calcium 20 MG TAB PER TUBE SCH (20:23)
[2018-02-14] MEDS: levETIRAcetam In NaCl (Iso-Os) 1,500 MG in Premix Bag 1 BAG IVPB SCH ×2 (02:12→15:38)
[2018-02-14] MEDS: Piperacillin/Tazobactam 3.375 GM in Sodium Chloride 0.9% 100 ML IVPB SCH ×3 (05:14→17:41)
[2018-02-14 05:28] LABS: #Basophils 0.1 thou/uL (0.0-0.2); #Eosinphils 0.4 thou/uL (0.0-0.7); #Lymphocytes 1.7 thou/uL (1.20-3.40); #Monocytes 1.4 thou/uL (0.11-0.59); #Neutrophils 13.7 thou/uL (1.40-6.50); %Basophils 0.6 % (0.0-1.0); %Eosinophils 2.3 % (0.0-10.0); %Lymphocytes 9.7 % (21.0-51.0); %Neutrophils 79.3 % (42.0-75.0); Hemoglobin 11.7 g/dL (14.0-18.0); Mean Corpuscular HGB CONC 30.9 g/dL (32.0-36.0); Mean Corpuscular Hemoglobin 30.2 pg (27.0-31.0); Mean Corpuscular Volume 97.8 fL (78.0-98.0); Mean Platelet Volume 7.9 fL (7.4-10.4); Platelet Count 429 thou/uL (130-400); Red Blood Cell (RBC) Count 3.86 mill/uL (4.70-6.10); White Blood Cell (WBC) Count 17.2 thou/uL (4.8-10.8)
[2018-02-14 05:45] LABS: Anion Gap 13 mmol/L (10-20); BUN (Urea Nitrogen) 9 mg/dL (8.4-25.7); Calc. Creatinine Clearance 110 mL/min (70-130); Calcium 9.3 mg/dL (7.8-10.44); Carbon Dioxide 28 mmol/L (23-31); Chloride 102 mmol/L (98-107); Estimated GFR-MDRD Greater than 90; Glucose 136 mg/dL (80-115); Potassium 4.1 mmol/L (3.5-5.1); Sodium 139 mmol/L (136-145)
--- NOTE | 2018-02-14 08:46 | PRG ---
DATE OF SERVICE: 02/14/2018 He was successfully extubated yesterday and has done fairly well from a secretion standpoint. PHYSICAL EXAMINATION: VITAL SIGNS: Temperature is 98.8, pulse 86, blood pressure 146/49, 24 intake 2905, output 2765. HEENT: Remarkable for the ulcerated cancer beneath his chin. NECK: No JVD. LUNGS: Fairly clear. CARDIAC: S1 and S2 regular. ABDOMEN: Soft. EXTREMITIES: No edema. LABORATORY DATA: White blood cell count 17.2, hematocrit 37.8, platelet count 429. Sodium 139, pota ssium 4.1, chloride 102, CO2 28, BUN 9, creatinine 0.7, glucose 136. ASSESSMENT: 1. Status post intubation for status epilepticus. 2. Aspiration pneumonitis. 3. Oropharyngeal dysfunction. 4. Head and neck cancer. 5. Frontal lobe stroke. PLAN: Will probably transfer to [facility] today. He will continue IV antibiotics. Initiate physical the rapy.
[2018-02-14] MEDS: Famotidine 20 MG TAB PER TUBE SCH ×2 (10:22→20:58)
[2018-02-14] MEDS: Fosphenytoin Sodium 200 MG in Sodium Chloride 0.9% 50 ML IVPB SCH ×2 (10:22→20:59)
[2018-02-14] MEDS: Aspirin 325 MG TAB PER TUBE SCH (10:22)
[2018-02-14] MEDS: Enoxaparin Sodium 40 MG/0.4 ML SYRINGE SC SCH (10:23)
--- NOTE | 2018-02-14 11:47 | PDOC.PN ---
- Subjective Encounter Start Date: 02/14/18 Encounter Start Time: 11:45 Mr. Garcia was seen today in follow-up of new onset seizures and acute respiratory failure. He is complaining of some discomfort in his left leg, he denies feeling short of breath. - Objective Resuscitation Status: Resuscitation Status FULL:Full Resuscitation MAR Reviewed: Yes Vital Signs & Weight: Vital Signs (12 hours) Temp Pulse Resp Pulse Ox 02/14/18 10:35 94 20 99 02/14/18 08:00 99.5 F 02/14/18 06:50 100 02/14/18 06:40 97 20 100 02/14/18 03:00 98.8 F 02/14/18 02:17 98 22 H 100 Weight Admit Weight 164 lb Weight 167 lb 15.876 oz Most Recent Monitor Data Heart Rate from ECG 91 NIBP 119/61 NIBP BP-Mean 71 Respiration from ECG 19 SpO2 100 I&O: 02/13/18 02/14/18 02/15/18 06:59 06:59 06:59 Intake Total 3386 2905 120 Output Total 1997 2765 540 Balance 1388 140 -420 Result Diagrams: 02/14/18 05:02 02/14/18 05:02 Phys Exam - Physical Examination HEENT: PERRLA Respiratory: no wheezing, no rales, clear to auscultation bilateral + occsional rhonchi Cardiovascular: RRR, no significant murmur, no rub no gallop Gastrointestinal: soft, non-tender, no distention, positive bowel sounds Musculoskeletal: no edema, pulses present Neurological: moves all 4 limbs Dx/Plan (1) Acute hypercapnic respiratory failure Code(s): J96.02 - ACUTE RESPIRATORY FAILURE WITH HYPERCAPNIA Status: Acute (2) New onset seizure Code(s): R56.9 - UNSPECIFIED CONVULSIONS Status: Acute (3) Hypertensive urgency Code(s): I16.0 - HYPERTENSIVE URGENCY Status: Resolved (4) Aspiration pneumonitis Code(s): J69.0 - PNEUMONITIS DUE TO INHALATION OF FOOD AND VOMIT Status: Acute (5) Acute cerebrovascular accident (CVA) Code(s): I63.9 - CEREBRAL INFARCTION, UNSPECIFIED Status: Acute (6) Dysphagia due to recent stroke Code(s): I69.391 - DYSPHAGIA FOLLOWING CEREBRAL INFARCTION Status: Acute (7) Hypertension Code(s): I10 - ESSENTIAL (PRIMARY) HYPERTENSION Status: Chronic (8) CVA (cerebral vascular accident) Code(s): I63.9 - CEREBRAL INFARCTION, UNSPECIFIED Status: Chronic Qualifiers: Precerebral and cerebral artery: posterior cerebral artery Laterality of affected vessel: right Comment: on aspirin and statin, right post frontoparietal area cva (9) 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 He likely will not improve much regarding his swallowing in the next few days, and if radiation therapy and surgery are planned for the near future, he may benefit from PEG tube placement. His mother is the Surrogate decision maker, and the family plans to meet with Palliative care this afternoon- If they plan to proceed with PEG tube will consult GI * Acute CVA in the frontal temporal region- continue aspirin and statin * HTN- blood pressure is controlled.
[2018-02-14] MEDS: Nicotine 21 MG PATCH TOP SCH (15:38)
[2018-02-14] MEDS: Atorvastatin Calcium 20 MG TAB PER TUBE SCH (20:58)
[2018-02-15] MEDS: Piperacillin/Tazobactam 3.375 GM in Sodium Chloride 0.9% 100 ML IVPB SCH ×2 (00:08→06:05)
[2018-02-15] MEDS: levETIRAcetam In NaCl (Iso-Os) 1,500 MG in Premix Bag 1 BAG IVPB SCH (02:20)
[2018-02-15 04:07] LABS: #Eosinphils 0.6 thou/uL (0.0-0.7); #Lymphocytes 1.5 thou/uL (1.20-3.40); #Monocytes 1.1 thou/uL (0.11-0.59); #Neutrophils 16.5 thou/uL (1.40-6.50); %Basophils 0.2 % (0.0-1.0); %Eosinophils 3.1 % (0.0-10.0); %Lymphocytes 7.7 % (21.0-51.0); %Monocytes 5.5 % (0.0-10.0); %Neutrophils 83.5 % (42.0-75.0); Hemoglobin 11.8 g/dL (14.0-18.0); Mean Corpuscular HGB CONC 33.2 g/dL (32.0-36.0); Mean Corpuscular Hemoglobin 31.9 pg (27.0-31.0); Mean Platelet Volume 7.7 fL (7.4-10.4); Platelet Count 485 thou/uL (130-400); RBC Distribution Width 12.1 % (11.5-14.5); Red Blood Cell (RBC) Count 3.72 mill/uL (4.70-6.10); White Blood Cell (WBC) Count 19.8 thou/uL (4.8-10.8)
[2018-02-15 04:14] LABS: Anion Gap 16 mmol/L (10-20); BUN (Urea Nitrogen) 14 mg/dL (8.4-25.7); Calc. Creatinine Clearance 103 mL/min (70-130); Calcium 9.5 mg/dL (7.8-10.44); Carbon Dioxide 28 mmol/L (23-31); Chloride 102 mmol/L (98-107); Estimated GFR-MDRD Greater than 90; Glucose 176 mg/dL (80-115); Potassium 4.1 mmol/L (3.5-5.1); Sodium 142 mmol/L (136-145)
[2018-02-15] MEDS: Aspirin 325 MG TAB PER TUBE SCH (08:50)
[2018-02-15] MEDS: Famotidine 20 MG TAB PER TUBE SCH (08:50)
[2018-02-15] MEDS: Enoxaparin Sodium 40 MG/0.4 ML SYRINGE SC SCH (08:50)
[2018-02-15] MEDS: Fosphenytoin Sodium 200 MG in Sodium Chloride 0.9% 50 ML IVPB SCH (08:51)
--- NOTE | 2018-02-15 10:36 | PDOC.PN ---
- Subjective Encounter Start Date: 02/15/18 Encounter Start Time: 09:00 Subjective: awake, sob+ -: not fully oriented - Objective Resuscitation Status: Resuscitation Status DNR:Do Not Resuscitate MAR Reviewed: Yes Vital Signs & Weight: Vital Signs (12 hours) Temp Pulse Resp BP Pulse Ox 02/15/18 07:25 98.4 F 105 H 16 168/84 H 97 02/15/18 07:17 99 02/15/18 07:15 105 H 22 H 99 02/15/18 04:00 99.3 F 105 H 20 178/90 H 99 02/15/18 02:06 106 H 20 98 02/15/18 00:10 99.6 F 108 H 18 175/81 H 98 02/14/18 22:37 104 H 20 98 Weight Admit Weight 164 lb Weight 162 lb 4.163 oz Most Recent Monitor Data Heart Rate from ECG 100 NIBP 148/57 NIBP BP-Mean 101 Respiration from ECG 20 SpO2 100 I&O: 02/14/18 02/15/18 02/16/18 06:59 06:59 06:59 Intake Total 2905 1617 Output Total 2765 2385 Balance 140 -768 Result Diagrams: 02/15/18 03:38 02/15/18 03:38 Phys Exam - Physical Examination HEENT: PERRLA has ng tube Neck: no JVD mandibular mass+++ rhonchi++ Cardiovascular: RRR, no significant murmur Gastrointestinal: soft, non-tender, positive bowel sounds Musculoskeletal: no edema, pulses present left hemiplegia Dx/Plan (1) Acute cerebrovascular accident (CVA) Code(s): I63.9 - CEREBRAL INFARCTION, UNSPECIFIED Status: Acute Comment: recurrent cva (2) Acute hypercapnic respiratory failure Code(s): J96.02 - ACUTE RESPIRATORY FAILURE WITH HYPERCAPNIA Status: Acute (3) Aspiration pneumonitis Code(s): J69.0 - PNEUMONITIS DUE TO INHALATION OF FOOD AND VOMIT Status: Acute (4) Dysphagia due to recent stroke Code(s): I69.391 - DYSPHAGIA FOLLOWING CEREBRAL INFARCTION Status: Acute (5) New onset seizure Code(s): R56.9 - UNSPECIFIED CONVULSIONS Status: Acute (6) Hypertension Code(s): I10 - ESSENTIAL (PRIMARY) HYPERTENSION Status: Chronic Qualifiers: Hypertension type: essential hypertension Qualified Code(s): I10 - Essential (primary) hypertension (7) Squamous cell carcinoma of mandible Code(s): 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 - Plan poor prognosis with malignancy and recurrent cva -: has been accepted to inpt hospice per pt and family's wishes -: dc pt to hospice * . Review of Systems - Medications/Allergies Allergies/Adverse Reactions: Allergies Allergy/AdvReac Type Severity Reaction Status Date / Time No Known Allergies Allergy Verified 01/26/18 23:40 Medications: Current Medications Albuterol/Ipratropium (Duoneb) 3 ml EZPAP [id number] [facility] Last Admin: 02/15/18 07:15 Dose: 3 ml Aspirin (Aspirin) 325 mg PER TUBE DAILY [facility] Last Admin: 02/15/18 08:50 Dose: 325 mg Atorvastatin Calcium (Lipitor) 20 mg PER TUBE HS [facility] Last Admin: 02/14/18 20:58 Dose: 20 mg Enoxaparin Sodium (Lovenox) 40 mg SC 0900 [facility] Last Admin: 02/15/18 08:50 Dose: 40 mg Famotidine (Pepcid) 20 mg PER TUBE Q12HR [facility] Last Admin: 02/15/18 08:50 Dose: 20 mg Piperacillin Sod/Tazobactam (Sod 3.375 gm/ Sodium Chloride) 100 mls @ 200 mls/ hr IVPB Q6HR [facility] Last Admin: 02/15/18 06:05 Dose: 100 mls Levetiracetam 1,500 mg/ Device 100 mls @ 200 mls/hr IVPB 0200,1400 [facility] Last Admin: 02/15/18 02:20 Dose: 100 mls Fosphenytoin Sodium 200 mg/ (Sodium Chloride) 54 mls @ 108 mls/hr IVPB BID [facility] Last Admin: 02/15/18 08:51 Dose: 54 mls Lorazepam (Ativan) 2 mg SLOW IVP Q15MIN PRN PRN Reason: Seizures Last Admin: 02/11/18 21:10 Dose: 2 mg Nicotine (Nicoderm Patch) 21 mg TOP Q24HR [facility] Last Admin: 02/14/18 15:38 Dose: 21 mg Scopolamine (Transderm Scop) 1.5 mg TD Q3D [facility] Last Admin: 02/13/18 11:22 Dose: 1.5 mg
[2018-02-15 10:46] VITALS: BP 167/85; TEMP 99.1
--- NOTE | 2018-02-15 14:13 | DIS ---
DATE OF ADMISSION: 02/09/2018 DATE OF DISCHARGE: 02/15/2018 DISCHARGE DISPOSITION: To inpatient hospice at [facility]. PRIMARY DISCHARGE DIAGNOSES: Squamous cell carcinoma involving the mandible with almost fungating mass, acute recurrent cerebrovascular accident, carotid stenosis with recent right carotid endarterectomy, hypertension, new onset seizure, dysphagia due to current stroke and left hemiplegia, aspiration pneumonia. PROCEDURES DONE DURING HOSPITALIZATION: The patient has had a CT brain without IV contrast showed atrophy and chronic white matter ischemic changes, though stable posterior right frontoparietal old infarct changes. CT angio brain done showed there is no evidence of major branch occlusion involving intracranial MCA , ALONDRA and [employer] or vertebrobasilar arteries. CT neck showed greater than 70% stenosis of the origin of left ICA, some moderate stenosis in the left common carotid artery and left subclavian artery origin, high grade approximately 70% stenosis of the origin of the left ICA using NASCET criteria. He had findings of stable appearing very large mass involving the left floor of the mouth adjacent to the left mandible, which may be somewhat eroded. MRI brain done on 02/11/2018 showed acute infarct involving medial right temporal lobe. Had bronchoscopy done for retained secretions on 02/09/[address] Atwood. Blood cultures x2, no growth. Urine culture, no growth. H and H 11 and 35, platelet count is 485,000. Initial white count of 26,000. Discharge white count is 19. Had a pH of 7.21 with pCO2 of 70, PO2 59 on the day of admission on the blood gas. Discharge BUN and creatinine are 9 and 0.7. One set of troponin was negative. Prolactin was 21.2. DISCHARGE MEDICATIONS: Morphine p.r.n. for pain, scopolamine patch, oxygen for comfort. INPATIENT CONSULTS: Dr. Atwood for Pulmonology and Dr. Espinosa for Neurology. BRIEF COURSE DURING HOSPITALIZATION: The patient initially got admitted on the with complaints of left arm shaking. He was recently discharged after sustaining CVA. The patient had a new CVA in the medial right temporal lobe. Also, he was severely acidotic and had to be intubated on arrival. The patient had dense left hemiplegia. 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 The patient recently had sustained acute right frontoparietal area CVA with left -sided weakness and had right carotid endarterectomy done. During his previous hospitalizations, the patient also had fine needle aspiration of the mandibular mass and had known diagnosis of squamous cell carcinoma. In view of the patient 's severe deconditioning and worsening of his left hemiplegia with dysphagia, the patient was advised a PEG tube. The patient and family did not want to pursue any aggressive measures. He wanted to go into hospice due to multiple comorbid issues and current malignancy. He has been accepted to Inpatient Hospice at [facility] and will be shortly discharged home. Please note, the patient has severe dysphagia and has not been feeding since the time of admission. Please see a [id number] documentation on [facility] for the day of discharge. MYRIAMD
--- NOTE | 2018-02-22 17:55 | EKG ---
Test Reason : Blood Pressure : / mmHG Vent. Rate : 101 BPM Atrial Rate : 101 BPM P-R Int : 144 ms QRS Dur : 082 ms QT Int : 364 ms P-R-T Axes : 067 029 070 degrees QTc Int : 471 ms Sinus tachycardia Possible Left atrial enlargement Borderline ECG Confirmed by LEIDA BECERRA DO ([id number]), rewrite editor KUSH BURGER ([id number]) on 02/22/2018 5:55:18 PM Referred By: Confirmed By:LEIDA BECERRA DO
== END 2018-02-15 11:32 | disposition hospice, inpatient (51) | DRG 166 ==
LOC: ERS 12:33 → CCU 16:00 → IMCU/EMU 02-14 14:23
PROVIDERS: ADMIT Internal Medicine; ATTEND Internal Medicine
PROC: 0B9M8ZX Drainage of Bilateral Lungs, Via Natural or Artificial Opening Endoscopic, Diagnostic (ICD-10-PCS; principal; 2018-02-09)
PROC: 5A1945Z Respiratory Ventilation, 24-96 Consecutive Hours (ICD-10-PCS; 2018-02-09)
PROC: 0BH17EZ Insertion of Endotracheal Airway into Trachea, Via Natural or Artificial Opening (ICD-10-PCS; 2018-02-09)
DX: J96.02 Acute respiratory failure with hypercapnia (principal); I63.9 Cerebral infarction, unspecified; J69.0 Pneumonitis due to inhalation of food and vomit; I69.354 Hemiplegia and hemiparesis following cerebral infarction affecting left non-dominant side; G40.109 Localization-related (focal) (partial) symptomatic epilepsy and epileptic syndromes with simple partial seizures, not intractable, without status epilepticus; C41.1 Malignant neoplasm of mandible; E87.2 Acidosis; I69.398 Other sequelae of cerebral infarction; I65.22 Occlusion and stenosis of left carotid artery; I16.0 Hypertensive urgency; I69.391 Dysphagia following cerebral infarction; R13.12 Dysphagia, oropharyngeal phase; J44.9 Chronic obstructive pulmonary disease, unspecified; Z51.5 Encounter for palliative care; Z87.891 Personal history of nicotine dependence; Z79.82 Long term (current) use of aspirin
CPT/HCPCS: 36415; 36416; 51701; 70450; 70496; 70498; 70553; 71045; 80048; 80053; 80185; 81003; 82553; 82805; 84146; 84484; 85025; 85610; 85730; 87040; 87070; 87086; 93005; 94002; 94003; 94640; 94660; 95816; 95819; 96365; 96368; 96375; A4216; G8978-GP-CM; G8979-GP-CK; G8996-GN-CN; G8997-GN-CL; J0131; J1650; J1953; J2060; J2270; J2543; J2704; J7050; J7620; Q2009; S0028